=== PATIENT | male | born 1960 | race Caucasian/White ===

== ENCOUNTER 2018-12-06 15:05 | Emergency (ER) | payer OTHER ==
--- NOTE | 2018-12-06 15:40 | ED ---
GI/ HPI - HPI Summary HPI Summary: This patient is a 58 year old male presenting to the ED with a cc of testicular pain for the last two days. He rates the pain 7/10 in severity and states it does not feel similar to his previous torsion. 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 There is no swelling. He denies urinary sx, rectal pain, fever, and new sexual partners. NKDA. The patient was seen at his PCP [facility] for back pain and he was sent here to r/o torsion. - History of Current Complaint Chief Complaint: EDUrogenitalProblems Time Seen by Provider: 12/06/18 15:13 Stated Complaint: RT TESTICLE PAIN Hx Obtained From: Patient Onset/Duration: Started Days Ago - 2, Still Present Timing: Constant Severity: Moderate Current Severity: Moderate Pain Intensity: 7 Location of Pain: Groin Additional Locations for Males: Scrotum, Testicles - Allergy/Home Medications Allergies/Adverse Reactions: Allergies Allergy/AdvReac Type Severity Reaction Status Date / Time No Known Allergies Allergy Verified 12/06/18 15:21 PMH/Surg Hx/FS Hx/Imm Hx Endocrine/Hematology History: Denies: Hx Diabetes, Hx Thyroid Disease Cardiovascular History: Denies: Hx Hypertension, Hx Pacemaker/ICD Respiratory History: Reports: Hx Sleep Apnea - evaluation for 12/2013 Denies: Hx Asthma, Hx Chronic Obstructive Pulmonary Disease (COPD) GI History: Denies: Hx Ulcer Sensory History: Reports: Hx Contacts or Glasses Denies: Hx Hearing Aid Opthamlomology History: Reports: Hx Contacts or Glasses Psychiatric History: Reports: Hx Anxiety, Hx Depression, Hx Inpatient Treatment , Other Psychiatric Issues/Disorders - hx of ETOH Denies: Hx Panic Disorder - Surgical History Surgery Procedure, Year, and Place: nasal surgery as a child, tendon repair ( right) hand, testicular torsion-testicle removed - Immunization History Immunizations Up to Date: Yes Infectious Disease History: No Infectious Disease History: Denies: Hx Hepatitis, Hx Human Immunodeficiency Virus (HIV), History Other Infectious Disease, Traveled Outside the [place] in Last 30 Days - Family History Known Family History: Negative: Respiratory Disease, Seizure Disorder - Social History Alcohol Use: None Substance Use Type: Reports: None Substance Use Comment - Amount & Last Used: Previous ETOH, sober past 3 yrs, goes to AA Smoking Status (MU): Never Smoked Tobacco Type: Cigarettes Amount Used/How Often: 1 ppd Length of Time of Smoking/Using Tobacco: 30 yrs Have You Smoked in the Last Year: Yes Review of Systems Negative: Fever Gastrointestinal: Negative - rectal pain Genitourinary: Negative - swelling , Other - testicular pain Positive: no symptoms reported Musculoskeletal: Other - back pain seen at PCP for this All Other Systems Reviewed And Are Negative: Yes Physical Exam - Summary Physical Exam Summary: Appearance: Well appearing, no pain distress Skin: warm, dry, reflects adequate perfusion Head/face: normal Eyes: EOMI, YNES ENT: mucous membranes moist Neck: supple, non-tender Respiratory: CTA, breath sounds present Cardiovascular: RRR, pulses symmetrical Abdomen: non-tender, soft Bowel Sounds: present : TTP on the epididymis, there is no hernia, there is only a right testicle. Normal lie Musculoskeletal: normal, strength/ROM intact Neuro: normal, sensory motor intact, A&Ox3 Triage Information Reviewed: Yes Vital Signs On Initial Exam: Initial Vitals Temp Pulse Resp BP Pulse Ox 98 F 80 17 139/89 99 12/06/18 15:07 12/06/18 15:07 12/06/18 15:07 12/06/18 15:07 12/06/18 15:07 Vital Signs Reviewed: Yes Diagnostics - Vital Signs Vital Signs Temp Pulse Resp BP Pulse Ox 12/06/18 15:07 98 F 80 17 139/89 99 - Laboratory Lab Statement: Any lab studies that have been ordered have been reviewed, and results considered in the medical decision making process. GIGU Course/Dx - Course Assessment/Plan: US consistent with epididymitis no evidence for torsion. Urine negative. GC/chlamydia testing performed. Start Cipro. Nurse's not reviewed. - Diagnoses Differential Diagnoses - Male: Epididymitis, STD, Ureteral Calculi, Urinary Tract Infection Provider Diagnoses: Acute epididymitis Discharge - Sign-Out/Discharge Documenting (check all that apply): Patient Departure - Discharge Plan Condition: Improved Disposition: HOME Prescriptions: Ciprofloxacin TAB* [Cipro 500 MG TAB*] 500 mg PO BID #20 tab traMADol TAB* [Ultram*] 50 mg PO Q8HR #12 tab MDD 4 Patient Education Materials: Epididymitis (ED) Forms: *Work Release Referrals: Marco Antonio Greenwood MD [Primary Care Provider] - Additional Instructions: Tightfitting underwear. Ice to the area. Ejaculation mental health. Call your doctor in the morning to schedule prompt follow-up. Return if worse, fever , uncontrolled pain, new symptoms or other concerns. - Billing Disposition and Condition Condition: IMPROVED Disposition: Home - Attestation Statements Document Initiated by Jesenia: Yes Documenting Scribe: Chele Sadler Provider For Whom Jesenia is Documenting (Include Credential): Andrey Arnold MD Scribe Attestation: IChele , scribed for Andrey Arnold MD on 12/06/18 at 1647. Scribe Documentation Reviewed: Yes Provider Attestation: The documentation as recorded by the Chele le accurately reflects the service I personally performed and the decisions made by me, Andrey Arnold MD Status of Scrradhikae Document: Viewed
[2018-12-06] MEDS ORDERED: Naproxen TAB* 250 MG PO ONE (15:41)
[2018-12-06 16:00] LABS: Urine Appearance Cloudy; Urine Bilirubin Negative (Negative); Urine Blood Negative (Negative); Urine Color Yellow; Urine Glucose Negative (Negative); Urine Ketones Negative (Negative); Urine Nitrite Negative (Negative); Urine Protein Negative (Negative); Urine Specific Gravity 1.024 (1.010-1.030); Urine Urobilinogen Negative (Negative)
[2018-12-06 16:04] VITALS: BP 127/85
--- OUTSIDE RECORDS SUMMARY | 2018-12-06 16:11 | XMS REPORT | Continuity of Care Document ---
:1960 External Reference #:[id number] Author Name CESAR Lamb Address [address] [facility] [place] [address] Care Team Providers Name Role Phone Marco Antonio Greenwood MD Care Team Information Fruit Sorter Unavailable Marco Antonio Greenwood MD Primary Care Physician Unavailable Payers Type Date Identification Numbers Payment Provider Subscriber Effective: 2010 Policy Number: [id number] [facility] Leilani Schuster PayID: [id number] [address] [address] [place] [address] Advance Directives Description No Information Available Problems Date Description Provider Status Onset: 05/24/2012 Depressive disorder Jacinda Lemons-Mary Lou Active Onset: 05/24/2012 Anxiety state Elaine Lemons Active Onset: 05/24/2012 Alcohol abuse Elaine Lemons Active Onset: 08/30/2012 Nondependent alcohol abuse in Elaine Lemons Active remission Onset: 03/19/2015 Hyperlipidemia Elaine Lemons Active Onset: 09/19/2015 Mixed hyperlipidemia Marco Antonio Greenwood M.D. Active Family History Date Family Member(s) Problem(s) Comments Father due to Cancer () Father Lymphoma Extent Of Involvement Not Specified Number of Children None Number of Siblings Siblings: 1 Social History Type Date Description Comments Sex Unknown Marital Status Patient is Occupation Sales record store Tobacco Use Start: 11/15/82 Current Cigarette Smoker 1 Pack Daily ETOH Use Has consumed alcohol in the past Tobacco Use Start: Unknown Patient is a current a little under 1 ppd, has smoker, smokes every day quit successfully in the past Smoking Status Reviewed: 03/30/17 Patient is a current a little under 1 ppd , has smoker, smokes every day quit successfully in the past Allergies, Adverse Reactions, Alerts Description No Known Drug Allergies Medications Medication Date Status Form Strength Qnty SIG Indications Ordering Provider Cyclobenzaprine 12/06 Active Tablets 5mg 60tabs one to M25.511 two Marilu, tablet [employer] every night at bedtime as needed for upper back, neck, shoulder pain Mirtazapine Active Tablets 30mg take Unknown /0000 1.5-1 tablet by mouth at bedtime Diazepam Active Tablets 2mg 1 po once Unknown /0000 a day as needed for anxiety Viagra 07/01 Hx Tablets 100mg 9tabs take 11/16 F52.21 Marco Antonio A to 1 Dardiogenes, - tablet by M.D. 10/14 mouth minutes prior to sexual activity as directed Nicorette 09/01 Hx Gum 4mg 100units chew one F17.290 piece at [facility], - least 6 Afnp-C 11/17 x/day Temazepam 07/17 Hx Capsules 15mg 30caps 1 by F41.9 Teetee mouth at [facility], - bedtime [employer] 08/06 as needed Aripiprazole 05/26 Hx Tablets 15mg 30tabs 1 tab qd F33.1 Roderick, - Afnp-C 07/17 Abilify 04/28 Hx Tablets 10mg 30tabs 1 po qd F33.40 Roderick, - Afnp-C 05/26 Clonazepam 02/10 Hx Tablets 1mg 60tabs 11/16 - 1 two times [facility], - a day as M.D. 12/06 directed Temazepam 09/19 Hx Capsules 15mg 30caps 1 by F41.9 Marco Antonio A. mouth at [facility], - bedtime M.D. 04/28 Physical Therapy 08/08 Hx treatment 719.41 and Roderick, - evaluatio Afnp-C 09/19 n right shoulder pain Naproxen 08/08 Hx Tablets 500mg 60tabs 1 by 719.41 mouth Roderick, - twice a Afnp-C 09/19 day w food Naproxen 07/17 Hx Tablets 500mg 60tabs 1 po bid 719.41 w/ food Roderick, - Afnp-C 03/19 Physical Therapy 07/17 Hx treatment 719.41 and Roderick, - evaluatio Afnp-C 03/19 n of left shoulder pain Atorvastatin 06/14 Hx Tablets 10mg 90tabs take one 272.4 Stuart Swartz tablet by Tisha, - mouth M.D. 07/01 daily Cialis 04/24 Hx Tablets 5mg 30tabs 1 by mouth Roderick, - every Afnp-C samples given Levitra 03/20 Hx Tablets 10mg samples 1 po one hour Roderick, - prior to Afnp-C 04/24 relations Cymbalta 01/[address] 60mg 30caps 1 by Part mouth qd; Roderick, - may fill Afnp-C 09/18 generic Cymbalta 01/[address] 60mg 30caps 1 po qd Part Roderick, - np-C 01/16 Duloxetine HCL 01/[address] 60mg 30caps take one Part capsule Roderick, - by mouth Afnp-C 07/17 daily Abilify 09/26 Hx Tablets 5mg 30tabs Take One F33.40 Tablet By Roderick, - Mouth Afnp-C 04/28 Every Day Abilify 09/12 Hx Tablets 2mg 30tabs 1 po qd 296.30 Roderick, - Afnp-C 09/26 Cymbalta 08/[address] 60mg 1 po qd Part Roderick, - Afnp-C 01/16 Cymbalta 08/[address] 30mg 7caps 1 po qd; Part samples Roderick, - Afnp-C 08/15 Citalopram 02/24 Hx Tablets 20mg 30tabs 1 po qd Laura Hydrobromide along w/ Roderick, - the 40mg [facility] 08/15 tab Citalopram 02/09 Hx Tablets 40mg 30tabs 1 tab po 311 Laura Hydrobromide qd along Roderick, - w/ 20mg [facility] 08/08 tab Citalopram 12/17 Hx Tablets 60mg 30tabs 1 po qd 311 Laura Hydrobromide Roderick, - chad- 02/09 Klonopin 07/22 Hx Tablets 1mg 20tabs / - 1 F32.9 Laura by mouth Roderick, - twice a [facility] 09/19 day needed Trazodone HCL 06/18 Hx Tablets 50mg 30tabs take one tablet by Roderick, - mouth at [facility] 07/22 bedtime for sleep Celexa 12/17 Hx Tablets 40mg 45tabs 1 and 11/16 311 Laura po qd Roderick, - chad- 12/17 Celexa 09/04 Hx Tablets 20mg 30tabs 1 q am 311 Roderick, - [facility] 12/17 Ambien 08 Hx Tablets 10mg 30tabs 1 po q hs prn Roderick, - [facility] 03/18 Wellbutrin SR 08/14 Hx Tablets 150mg 60tabs 1 tab qd 311 ER 12HR x 3 days Roderick, - , then 1 [facility]- 09/04 tab bid at least 8 hrs apart. Xanax 08/14 Hx Tablets 0.25mg 20tabs 1 po qd 311 Laura prn Roderick, - [facility] 07/22 Rexulti 0000 Hx Tablets 1mg Unknown /0000 - 08/06 Lexapro 0000 Hx Tablets 20mg 1 by Unknown /0000 mouth - every day 11/17 Pristiq 0000 Hx Tablets 100mg take 1 Unknown /0000 ER 24HR tablet by - mouth at 03/29 bedtime Nicotine Step 1 00 Hx Patches 21mg/24HR F17.290 Unknown /0000 24HR - 03/[address] 30mg 1 by Unknown /0000 Part mouth - every day 07/01 Abilify Hx Tablets 2mg 1 qd Unknown /0000 along - with 5mg 12/06 for total /2018 of 7mg. Trintellix Hx Tablets 10mg take 1 Unknown /0000 tablet by - mouth 10/14 daily depressio n Abilify Hx Tablets 5mg take one Unknown /0000 tablet - along 07/14 with 2mg 2018 for 7mg total Methylphenidate Hx Tablets 5mg 1 by Unknown HCL /0000 mouth - every day 10/14 Venlafaxine HCL Hx Caps ER 37.5mg 1 by Unknown ER /0000 24HR mouth - every day 12/06 Immunizations CPT Code Status Date Vaccine Lot # [id number] Given 10/14/2017 Influenza vac quadrivalent preservative free 3yrs [id number] [place] [id number] Given 03/30/2017 Tdap Tetanus, W Pertussis [id number] Given 09/19/2015 Influenza Vac, Quadrivalent, Slit Virus, Im [id number] Given 09/18/2014 DO Not Use Split Influenza Virus Vaccine [id number] Given 08/30/2012 DO Not Use Split Influenza Virus Vaccine [id number] Vital Signs Date Vital Result Comment 12/06/2018 1:56pm BP Systolic 110 mmHg BP Diastolic 60 mmHg Heart Rate 80 /min Body Temperature 97.8 F Respiratory Rate 16 /min Height 67.5 inches 5'7.50" Weight 141.00 lb BMI (Body Mass Index) 21.8 kg/m2 07/14/2018 6:11pm BP Systolic 100 mmHg BP Diastolic 60 mmHg Heart Rate 76 /min Body Temperature 97.7 F Respiratory Rate 16 /min Height 67.5 inches 5'7.50" Weight 148.00 lb BMI (Body Mass Index) 22.8 kg/m2 10/14/2017 1:00pm BP Systolic 90 mmHg BP Diastolic 50 mmHg Heart Rate 80 /min Body Temperature 97.9 F Respiratory Rate 16 /min Height 67.5 inches 5'7.50" Weight 142.00 lb BMI (Body Mass Index) 21.9 kg/m2 07/01/2017 5:58pm BP Systolic 110 mmHg BP Diastolic 60 mmHg Heart Rate 92 /min Body Temperature 98.6 F Respiratory Rate 16 /min Height 67.5 inches 5'7.50" Weight 137.25 lb BMI (Body Mass Index) 21.2 kg/m2 03/30/2017 1:08pm BP Systolic 80 mmHg BP Diastolic 56 mmHg Heart Rate 104 /min Body Temperature 98.1 F Respiratory Rate 14 /min Height 67.5 inches 5'7.50" Weight 144.25 lb BMI (Body Mass Index) 22.3 kg/m2 11/17/2016 10:49am BP Systolic 98 mmHg BP Diastolic 50 mmHg Heart Rate 90 /min Body Temperature 98.4 F Respiratory Rate 16 /min Height 67.5 inches 5'7.50" Weight 143.38 lb BMI (Body Mass Index) 22.1 kg/m2 09/01/2016 12:59pm BP Systolic 120 mmHg BP Diastolic 70 mmHg Heart Rate 16 /min Body Temperature 98.6 F Respiratory Rate 18 /min Height 67.5 inches 5'7.50" Weight 142.00 lb BMI (Body Mass Index) 21.9 kg/m2 08/18/2016 2:50pm BP Systolic 82 mmHg BP Diastolic 56 mmHg Heart Rate 60 /min Body Temperature 97.6 F Respiratory Rate 16 /min Height 67.5 inches 5'7.50" Weight 143.50 lb BMI (Body Mass Index) 22.1 kg/m2 08/06/2016 11:16am BP Systolic 110 mmHg BP Diastolic 64 mmHg Heart Rate 84 /min Body Temperature 97.8 F Respiratory Rate 16 /min Height 67.5 inches 5'7.50" Weight 143.50 lb BMI (Body Mass Index) 22.1 kg/m2 05/26/2016 1:13pm BP Systolic 110 mmHg BP Diastolic 60 mmHg Heart Rate 76 /min Respiratory Rate 16 /min Height 67.5 inches 5'7.50" Weight 145.00 lb BMI (Body Mass Index) 22.4 kg/m2 04/28/2016 1:00pm BP Systolic 100 mmHg BP Diastolic 60 mmHg Heart Rate 88 /min Body Temperature 97.5 F Respiratory Rate 16 /min Height 67.5 inches 5'7.50" Weight 144.38 lb BMI (Body Mass Index) 22.3 kg/m2 10/01/2015 4:45pm BP Systolic 108 mmHg BP Diastolic 62 mmHg Heart Rate 92 /min Body Temperature 98.7 F Respiratory Rate 16 /min Height 67.5 inches 5'7.50" Weight 144.00 lb BMI (Body Mass Index) 22.2 kg/m2 09/19/2015 1:15pm BP Systolic 100 mmHg BP Diastolic 60 mmHg Heart Rate 96 /min Body Temperature 97.9 F Respiratory Rate 16 /min Height 67.5 inches 5'7.50" Weight 144.00 lb BMI (Body Mass Index) 22.2 kg/m2 08/08/2015 1:43pm BP Systolic 110 mmHg BP Diastolic 70 mmHg Heart Rate 90 /min Body Temperature 97.6 F Respiratory Rate 16 /min Height 67.5 inches 5'7.50" Weight 147.00 lb BMI (Body Mass Index) 22.7 kg/m2 03/19/2015 2:02pm BP Systolic 98 mmHg BP Diastolic 62 mmHg Heart Rate 68 /min Body Temperature 97.9 F Respiratory Rate 16 /min Height 67.5 inches 5'7.50" Weight 146.25 lb BMI (Body Mass Index) 22.6 kg/m2 09/18/2014 2:05pm BP Systolic 100 mmHg BP Diastolic 52 mmHg Heart Rate 84 /min Body Temperature 97.6 F Respiratory Rate 16 /min Height 67.5 inches 5'7.50" Weight 146.00 lb BMI (Body Mass Index) 22.5 kg/m2 07/17/2014 6:01pm BP Systolic 100 mmHg BP Diastolic 60 mmHg Heart Rate 84 /min Body Temperature 98.6 F Respiratory Rate 16 /min Height 67.5 inches 5'7.50" Weight 145.50 lb BMI (Body Mass Index) 22.4 kg/m2 06/14/2014 10:02am BP Systolic 92 mmHg BP Diastolic 60 mmHg Heart Rate 84 /min Body Temperature 96.6 F Height 67.5 inches 5'7.50" Weight 152.00 lb BMI (Body Mass Index) 23.5 kg/m2 05/10/2014 1:57pm BP Systolic 110 mmHg BP Diastolic 50 mmHg Heart Rate 80 /min Body Temperature 97.4 F Respiratory Rate 16 /min Height 67.5 inches 5'7.50" Weight 148.00 lb BMI (Body Mass Index) 22.8 kg/m2 04/24/2014 3:04pm BP Systolic 90 mmHg BP Diastolic 60 mmHg Heart Rate 80 /min Body Temperature 98.2 F Respiratory Rate 16 /min Height 67.5 inches 5'7.50" Weight 145.12 lb BMI (Body Mass Index) 22.4 kg/m2 01/16/2014 2:02pm BP Systolic 98 mmHg BP Diastolic 50 mmHg Heart Rate 84 /min Body Temperature 98.5 F Respiratory Rate 16 /min Height 67.5 inches 5'7.50" Weight 144.00 lb BMI (Body Mass Index) 22.2 kg/m2 10/10/2013 2:07pm BP Systolic 116 mmHg BP Diastolic 60 mmHg Heart Rate 90 /min Body Temperature 98.1 F Respiratory Rate 16 /min Height 67.5 inches 5'7.50" Weight 138.38 lb BMI (Body Mass Index) 21.4 kg/m2 09/26/2013 2:43pm BP Systolic 110 mmHg BP Diastolic 60 mmHg Heart Rate 120 /min Body Temperature 96.7 F Respiratory Rate 18 /min Height 67.5 inches 5'7.50" Weight 135.12 lb BMI (Body Mass Index) 20.8 kg/m2 09/12/2013 1:16pm BP Systolic 100 mmHg BP Diastolic 70 mmHg Heart Rate 96 /min Body Temperature 97.1 F Height 67.5 inches 5'7.50" Weight 135.12 lb BMI (Body Mass Index) 20.8 kg/m2 08/29/2013 12:58pm BP Systolic 100 mmHg BP Diastolic 60 mmHg Heart Rate 96 /min Body Temperature 98.0 F Respiratory Rate 16 /min Height 67.5 inches 5'7.50" Weight 135.12 lb BMI (Body Mass Index) 20.8 kg/m2 08/15/2013 3:36pm BP Systolic 100 mmHg BP Diastolic 62 mmHg Heart Rate 88 /min Body Temperature 98.6 F Respiratory Rate 16 /min Height 67.5 inches 5'7.50" Weight 138.50 lb BMI (Body Mass Index) 21.4 kg/m2 08/08/2013 6:13pm BP Systolic 102 mmHg BP Diastolic 58 mmHg Heart Rate 96 /min Body Temperature 98.8 F Height 67.5 inches 5'7.50" Weight 138.50 lb BMI (Body Mass Index) 21.4 kg/m2 04/04/2013 12:10pm BP Systolic 90 mmHg BP Diastolic 54 mmHg Heart Rate 78 /min Body Temperature 98.7 F Respiratory Rate 16 /min Height 67.5 inches 5'7.50" Weight 134.00 lb BMI (Body Mass Index) 20.7 kg/m2 09/22/2012 3:41pm BP Systolic 100 mmHg BP Diastolic 60 mmHg Heart Rate 76 /min Body Temperature 97.1 F Respiratory Rate 12 /min Height 67.5 inches 5'7.50" Weight 136.00 lb BMI (Body Mass Index) 21.0 kg/m2 08/30/2012 12:07pm BP Systolic 88 mmHg BP Diastolic 52 mmHg Heart Rate 80 /min Body Temperature 95.5 F Height 67.5 inches 5'7.50" Weight 137.00 lb BMI (Body Mass Index) 21.1 kg/m2 05/24/2012 3:55pm BP Systolic 94 mmHg BP Diastolic 58 mmHg Heart Rate 72 /min Height 67.5 inches 5'7.50" Weight 136.00 lb BMI (Body Mass Index) 21.0 kg/m2 02/10/2012 11:38am BP Systolic 92 mmHg BP Diastolic 56 mmHg Heart Rate 64 /min Height 67.5 inches 5'7.50" Weight 133.00 lb BMI (Body Mass Index) 20.5 kg/m2 01/06/2012 11:34am BP Systolic 102 mmHg BP Diastolic 48 mmHg Heart Rate 88 /min Height 67.5 inches 5'7.50" Weight 140.00 lb BMI (Body Mass Index) 21.6 kg/m2 12/17/2011 11:15am BP Systolic 84 mmHg BP Diastolic 52 mmHg Heart Rate 72 /min Height 67.5 inches 5'7.50" Weight 140.00 lb BMI (Body Mass Index) 21.6 kg/m2 12/02/2011 11:36am BP Systolic 106 mmHg BP Diastolic 62 mmHg Heart Rate 68 /min Respiratory Rate 13 /min Height 67.5 inches 5'7.50" Weight 140.00 lb BMI (Body Mass Index) 21.6 kg/m2 08/26/2011 11:28am BP Systolic 102 mmHg BP Diastolic 58 mmHg Heart Rate 76 /min Body Temperature 97.2 F Height 67.5 inches 5'7.50" Weight 140.00 lb BMI (Body Mass Index) 21.6 kg/m2 07/22/2011 11:37am BP Systolic 98 mmHg BP Diastolic 60 mmHg Heart Rate 72 /min Body Temperature 96.6 F Height 67.5 inches 5'7.50" Weight 137.00 lb BMI (Body Mass Index) 21.1 kg/m2 06/18/2011 11:32am BP Systolic 82 mmHg BP Diastolic 56 mmHg Heart Rate 80 /min Body Temperature 97.4 F Height 67.5 inches 5'7.50" Weight 135.00 lb BMI (Body Mass Index) 20.8 kg/m2 03/18/2011 12:00pm BP Systolic 90 mmHg BP Diastolic 54 mmHg Heart Rate 78 /min Body Temperature 97.9 F Height 67.5 inches 5'7.50" Weight 137.00 lb BMI (Body Mass Index) 21.1 kg/m2 01/14/2011 11:33am BP Systolic 84 mmHg BP Diastolic 56 mmHg Heart Rate 68 /min Height 67.5 inches 5'7.50" Weight 134.00 lb BMI (Body Mass Index) 20.7 kg/m2 12/17/2010 11:28am BP Systolic 102 mmHg BP Diastolic 58 mmHg Heart Rate 80 /min Body Temperature 97.4 F Respiratory Rate 20 /min Height 67.5 inches 5'7.50" Weight 141.00 lb BMI (Body Mass Index) 21.8 kg/m2 10/08/2010 3:28pm BP Systolic 110 mmHg BP Diastolic 70 mmHg Heart Rate 80 /min Body Temperature 98.0 F Height 67.5 inches 5'7.50" Weight 140.00 lb BMI (Body Mass Index) 21.6 kg/m2 09/04/2010 1:02pm BP Systolic 110 mmHg BP Diastolic 70 mmHg Heart Rate 76 /min Height 67.5 inches 5'7.50" Weight 136.00 lb BMI (Body Mass Index) 21.0 kg/m2 08/14/2010 1:05pm BP Systolic 100 mmHg BP Diastolic 70 mmHg Heart Rate 72 /min Body Temperature 97.6 F Respiratory Rate 15 /min Height 67.5 inches 5'7.50" Weight 135.00 lb BMI (Body Mass Index) 20.8 kg/m2 Results Test Date Facility Test Result H/L Range Note CBC Electronic [facility] 07/07/2018 [facility] ([facility]) WBC 9.8 x10^3/UL 4.0- 10.0 RBC 4.46 x10^6/UL 3.93-6.00 HGB 12.9 g/dL 12.0-17.0 HCT 38 % 35-50 MCV 85.4 fL 80.0-95.0 MCH 28.9 pg 25.6-32.2 MCHC 33.9 g/dL 32.2-36.0 RDW-CV 12.5 % 11.6-14.4 PLT 339 x10^3/UL 163-400 MPV 8.7 fL Low 9.4-12.4 1 Laura# 5.11 x10^3/UL 1.56-6.13 Lymph# 2.95 x10^3/UL 1.18-3.74 [place]# 1.13 x10^3/UL High 0.24-0.82 Eos # 0.5 x10^3/UL 0.0-0.5 Baso # 0.04 x10^3/UL 0.01-0.08 Laura% 52.2 % 34.0-70.0 Lymph % 30.1 % 20.0-52.0 [place]% 11.5 % 5.0-12.0 Eos% 5.5 % 0.7-7.0 Baso% 0.4 % 0.1-1.2 CBC Auto Diff 03/28/2018 [facility] [facility] White Blood Count 9.1 10^3/uL N 3.5-10.8 Red Blood Count 4.32 10^6/uL N 4.0-5.4 Hemoglobin 13.0 g/dL Low 14.0-18.0 Hematocrit 38 % Low 42-52 Mean Corpuscular Volume 88 fL N 80-94 Mean Corpuscular Hemoglobin 30 pg N 27-31 Mean Corpuscular HGB Conc 34 g/dL N 31-36 Red Cell Distribution Width 14 % N 10.5-15 Platelet Count 325 10^3/uL N 150-450 Mean Platelet Volume 6.7 um3 Low 7.4-10.4 Abs Neutrophils 4.2 10^3/uL N 1.5-7.7 Abs Lymphocytes 3.5 10^3/uL N 1.0-4.8 Abs Monocytes 1.1 10^3/uL High 0-0.8 Abs Eosinophils 0.2 10^3/uL N 0-0.6 Abs Basophils 0.1 10^3/uL N 0-0.2 Abs Nucleated RBC 0 10^3/uL Granulocyte % 45.9 % N 38-83 Lymphocyte % 38.7 % N 25-47 Monocyte % 11.9 % High 0-7 Eosinophil % 2.8 % N 0-6 Basophil % 0.7 % N 0-2 Nucleated Red Blood Cells % 0.1 Comp Metabolic Panel 11/29/2017 [facility] Sodium 136 mmol/L N 133-145 Potassium 3.9 mmol/L N 3.5-5.0 Chloride 102 mmol/L N 101-111 Co2 Carbon Dioxide 31 mmol/L N 22-32 Anion Gap 3 mmol/L N 2-11 Glucose 84 mg/dL N 70-100 Blood Urea Nitrogen 13 mg/dL N 6-24 Creatinine 0.97 mg/dL N 0.67-1.17 BUN/Creatinine Ratio 13.4 N 8-20 Calcium 9.5 mg/dL N 8.6-10.3 Total Protein 6.9 g/dL N 6.4-8.9 Albumin 4.1 g/dL N 3.2-5.2 Globulin 2.8 g/dL N 2-4 Albumin/Globulin Ratio 1.5 N 1-3 Total Bilirubin 0.40 mg/dL N 0.2-1.0 Alkaline Phosphatase 77 U/L N 34-104 Alt 15 U/L N 7-52 Ast 17 U/L N 13-39 Egfr Non- 80.4 >60 Egfr 103.3 >60 2 Laboratory test finding 11/29/2017 [facility] [place] C Reactive Protein 1.04 mg/L N < 5.00 3 LDH 155 U/L N 140-271 CBC Auto Diff 11/29/2017 [facility] White Blood Count 15.8 10^3/uL High 3.5- 10.8 Red Blood Count 4.55 10^6/uL N 4.0-5.4 Hemoglobin 13.5 g/dL Low 14.0-18.0 Hematocrit 40 % Low 42-52 Mean Corpuscular Volume 87 fL N 80-94 Mean Corpuscular Hemoglobin 30 pg N 27-31 Mean Corpuscular HGB Conc 34 g/dL N 31-36 Red Cell Distribution Width 14 % N 10.5-15 Platelet Count 383 10^3/uL N 150-450 Mean Platelet Volume 7 um3 Low 7.4-10.4 Abs Neutrophils 11.5 10^3/uL High 1.5-7.7 Abs Lymphocytes 2.7 10^3/uL N 1.0-4.8 Abs Monocytes 1.3 10^3/uL High 0-0.8 Abs Eosinophils 0.2 10^3/uL N 0-0.6 Abs Basophils 0.1 10^3/uL N 0-0.2 Abs Nucleated RBC 0 10^3/uL Granulocyte % 72.8 % N 38-83 Lymphocyte % 17.1 % Low 25-47 Monocyte % 8.1 % N 1-9 Eosinophil % 1.2 % N 0-6 Basophil % 0.8 % N 0-2 Nucleated Red Blood Cells % 0 Laboratory test finding 11/29/2017 [facility] [place] Erythrocyte Sed Rate 13 mm/Hr N 0- 20 BCR/Abl Trans 9:22 Fish 11/29/2017 [facility] [place] BCR/abl (Fish) Result Normal Summary BCR/abl (Fish) Result Table See Comment 4 BCR/abl (Fish) Specimen Blood BCR/abl (Fish) Referral Reason high WBC BCR/abl (Fish) Method See Comment 5 BCR/abl Results See Comment 6 BCR/abl (Fish) Interpretation See Comment 7 BCR/abl (Fish) Disclaimer See Comment 8 BCR/abl (Fish) Released By See Comment 9 Laboratory test finding 11/29/2017 [facility] [place] Rheumatoid Factor <15 IU/mL <15 10 Nuclear AB (Hallie) By Ifa Igg <1:80 (Negative) 11 Myeloprolif Neoplasm With 11/29/2017 [facility] [place] MPNR Result see interpretati <SEE 12 RFX NOTE> MPNR Final Diagnosis See Comment 13 Complete Blood Count 10/14/2017 Lui [facility] ([facility]) WBC 10.9 x10^3/UL High 3.6-9.6 14 RBC 4.52 x10^6/UL 3.90-5.70 HGB 13.8 g/dL 12.1-17.2 HCT 41 % 36-50 MCV 90.0 fL 82.2-97.4 MCH 30.5 pg 27.6-33.3 MCHC 33.9 g/dL 33.0-35.5 RDW 13.2 % 11.6-13.7 PLT 409 x10^3/UL High 150-400 15 MPV 7.0 fL Low 7.4-10.4 Gran # 7.7 x10^3/UL High 1.5-7.2 Lymph# 2.6 x10^3/UL 0.7-4.9 [place]# 0.6 x10^3/UL 0.1-0.9 Gran % 69.8 % 42.2-75.2 Lymph % 24.4 % 20.5-51.1 [place]% 5.8 % 1.7-9.3 Laboratory test finding 10/14/2017 Lui Morris ([facility]) PSA 0.7 ng/mL 0.0-4.0 Vitamin D25 55 30-100 TSH 0.51 mIU/L 0.50-6.00 Comprehensive Metabolic 10/14/2017 Lui Morris ([facility]) Sodium 142 mEq/L 134-149 Prof Potassium 4.3 mEq/L 3.6-5.5 Chloride 105 mEq/L 94-112 Carbon Dioxide 27 mEq/L 21-32 Glucose 101 mg/dL 70-105 BUN 12 mg/dL 6-26 Creatinine 0.9 mg/dL 0.6-1.4 BUN/Creat Ratio 13.3 CALC 8.0-36.0 Calcium 9.3 mg/dL 8.6-10.2 Total Protein 6.8 g/dL 6.4-8.3 Albumin 4.4 g/dL 3.8-5.5 Globulin 2.4 g/dL 2.0-4.8 A/G Ratio 1.8 CALC 0.6-2.3 Alk. Phosphatase 82 U/L 22-95 Alt (SGPT) 18 U/L 7-35 Ast (Sgot) 17 U/L 5-34 Total Bilirubin 0.4 mg/dL 0.2-1.3 GFR Non- >60 ml/min/1.73m^ >=60 GFR >60 ml/min/1.73m^ >=60 Lipid Profile 10/14/2017 Lui Morris ([facility]) Cholesterol 226 mg/dL High 120-200 Triglycerides 160 mg/dL 30-200 HDL Cholesterol 51 mg/dL 30-70 LDL (Calculated) 143 CALC High 0-129 VLDL Cholesterol 32 mg/dL 0-50 HDL Risk Factor 4.4 CALC 0.0-4.4 Lipid Profile 04/08/2017 Lui Morris (a) Cholesterol 171 mg/dL 120- 200 Triglycerides 150 mg/dL 30-200 HDL Cholesterol 57 mg/dL 30-70 LDL (Calculated) 84 CALC 0-129 VLDL Cholesterol 30 mg/dL 0-50 HDL Risk Factor 3.0 CALC 0.0-4.4 Hepatitis Panel, 03/30/2017 [facility] Hep A Ab, Negative Negative [address] [facility] [place] [address] (607)- - HBsAg Screen Negative Negative Hep B Core Ab, IgM Negative Negative Hep C Virus Ab 0.4 s/coratio 0.0-0.9 17 Laboratory test 03/30/2017 [facility] RPR Non Reactive Non Reactive finding [address] [place] [address] (607)- - HIV 1/O/2 Ag/AB 03/30/2017 [facility] HIV Screen 4th Non Reactive Non Reactive Prelim W/Wales [address] [facility] [place] [place] [address] wRfx (607)- - Chlamydia/GC 03/30/2017 [facility] Chlamydia Negative Negative Amplification [address] [facility] trachomatis, [place] [address] Christie (607)- - Neisseria gonorrhoeae, Christie Negative Negative Laboratory test 03/30/2017 [facility] HSV Type <0.91 0.00-0.90 [address] [place] [address] 2-Specific Ab, [place] [address] IgG (607)- - Ua - Micro ([facility]) 11/17/2016 [facility] Appearance clear (607)- - Color yellow Glucose, Urine ([facility]/CMC/CTX) icto neg Bilirubin icto neg # Ketones trace # SP Grav 1.025 Blood neg PH 7.0 Protein ssa neg # Urobil 0.2 Nitrite neg Leukocytes ([facility]/CMC/Centrex) small # WBC ([facility],Centrex) 20-30 # RBC 2-4 # Mucus ([facility]/CBC/Centrex) small amount /Lpf # Bacteria 1+ /Hpf # Amorphous ([facility]/CMC/Centrex) small amount /Lpf # Laboratory test finding 11/17/2016 [facility] Request Problem TNP 19 [address] [place] [address] (607)- - Chlamydia/GC 11/17/2016 [facility] Chlamydia TNP [address] [facility] trachomatis, [place] [address] (607)- - Neisseria gonorrhoeae, Christie TNP 21 HIV 1/O/2 11/17/2016 [facility] HIV Screen 4th Non Reactive Non Reactive Ag/AB Prelim [address] [facility] Generation wRfx W/[place] [address] Sup (607)- - Urine Culture 11/17/2016 [facility] Urine Culture, Final report Routine [address] [facility] [place] [address] (607)- - Result 1 No growth Laboratory test 11/17/2016 [facility] RPR Non Reactive Non Reactive finding [address] [place] [address] (603)- - Hepatitis Panel, 11/17/2016 [facility] Hep A Ab, Negative Negative Acute [address] [facility] [place] [address] (607)- - HBsAg Screen Negative Negative Hep B Core Ab, IgM Negative Negative Hep C Virus Ab 0.5 s/coratio 0.0-0.9 22 HIV 1/O/2 Ag/AB 09/01/2016 [facility] HIV Screen 4th Non Non 23 Prelim W/[place] [address] [facility] Generation [place] [address] wRfx (607)- - Laboratory test 08/18/2016 [facility] HSV Type <0.91 index 0.00-0.[address] [place] [address] 2-Specific Ab, [place] [address] IgG (607)- - HSV, IgM I/II 08/06/2016 [facility] HSV, IgM I/II 1.20 Ratio High 0.00-0.[address] [facility] [place] [address] (602)- - Chlamydia/GC 08/06/2016 [facility] Chlamydia Negative Negative Amplification [address] [facility] trachomatis, [place] [address] Christie (607)- - Neisseria gonorrhoeae, Christie Negative Negative Laboratory test 08/06/2016 [facility] RPR Non Reactive Non Reactive finding [address] [place] [address] (60)- - PDF [id number] SEE IMAGE Laboratory test 05/26/2016 [facility] RPR Non Reactive Non Reactive [address] [place] [phone] (608)- - Testosterone, 05/26/2016 [facility] Testostero 807 ng/dL [phone] Free And Total [address] [facility] ne, [place] [address] (607)- - Comment: See Comment: 27 Free Testosterone(Direct) 11.6 pg/mL 7.2-24.0 HIV 1/O/2 Ag/AB 05/26/2016 [facility] HIV Screen 4th Non Reactive Non Reactive Prelim W/[place] [address] [facility] [place] [address] wRfx (607)- - Chlamydia/GC 05/26/2016 [facility] Chlamydia Negative Negative Amplification [address] [facility] trachomatis, [place] [address] Christie (607)- - Neisseria gonorrhoeae, Christie Negative Negative Please note: See Comment: 28 Laboratory test 09/19/2015 Poe Alexandra ([facility]) PSA 0.6 ng/mL 0.0-4.0 finding Laboratory test 09/19/2015 [facility] Hepatitis C Nonreactive N Nonreactive finding Antibody Lipid Profile 09/19/2015 Poe Alexandra ([facility]) Cholesterol 142 mg/dL 120- 200 Triglycerides 216 mg/dL High 30-200 HDL Cholesterol 45 mg/dL 30-70 LDL (Calculated) 54 CALC 0-129 VLDL Cholesterol 43 mg/dL 0-50 HDL Risk Factor 3.2 CALC 0.0-4.4 Comprehensive Metabolic 09/19/2015 Poe Alexandra ([facility]) Sodium 140 mEq/L 134-149 Prof Potassium 4.1 mEq/L 3.6-5.5 Chloride 99 mEq/L 94-112 Carbon Dioxide 31 mEq/L 21-32 Glucose 90 mg/dL 70-105 BUN 11 mg/dL 6-26 Creatinine 0.9 mg/dL 0.6-1.4 BUN/Creat Ratio 12.2 CALC 8.0-36.0 Calcium 9.7 mg/dL 8.6-10.2 Total Protein 7.3 g/dL 6.4-8.3 Albumin 4.4 g/dL 3.8-5.5 Globulin 2.9 g/dL 2.0-4.8 A/G Ratio 1.5 CALC 0.6-2.3 Alk. Phosphatase 79 U/L 22-95 Alt (SGPT) 19 U/L 7-35 Ast (Sgot) 30 U/L 5-34 Total Bilirubin 0.2 mg/dL 0.2-1.3 GFR Non- >60 ml/min/1.73m^ >=60 GFR >60 ml/min/1.73m^ >=60 Hepatic 09/18/2014 Poe Alexandra (a) Total Protein 6.7 g/dL 6.4-8.3 Albumin 4.5 g/dL 3.8-5.5 Globulin 2.2 g/dL 2.0-4.8 A/G Ratio 2.0 CALC 0.6-2.3 Alk. Phosphatase 68 U/L 22-95 Alt (SGPT) 21 U/L 7-35 Ast (Sgot) 21 U/L 5-34 Total Bilirubin 0.3 mg/dL 0.2-1.3 Direct Bilirubn 0.2 mg/dL 0.0-0.6 Indirect Bilirubin 0.10 mg/dL 0.10-1.00 Laboratory test 07/17/2014 Lui Alexandra (a) CK 137 U/L 38-174 finding Laboratory test 05/10/2014 Lui Alexandra (a) PSA 0.6 ng/mL 0.0-4.0 finding Lipid Profile 05/10/2014 Lui Alexandra (a) Cholesterol 218 mg/dL High 120-200 Triglycerides 144 mg/dL 30-200 HDL Cholesterol 41 mg/dL 30-70 LDL (Calculated) 148 CALC High 0-129 VLDL Cholesterol 29 mg/dL 0-50 HDL Risk Factor 5.3 CALC High 0.0-4.4 Comprehensive Metabolic 05/10/2014 Lui Alexandra (a) Sodium 135 mEq/L 134-149 Prof Potassium 4.1 mEq/L 3.6-5.5 Chloride 100 mEq/L 94-112 Carbon Dioxide 24 mEq/L 21-32 Glucose 80 mg/dL 70-105 BUN 10 mg/dL 6-26 Creatinine 1.0 mg/dL 0.6-1.4 BUN/Creat Ratio 10.0 CALC 8.0-36.0 Calcium 9.8 mg/dL 8.6-10.2 Total Protein 6.8 g/dL 6.3-8.1 Albumin 4.4 g/dL 3.8-5.5 Globulin 2.4 g/dL 2.0-4.8 A/G Ratio 1.8 CALC 0.6-2.3 Alk. Phosphatase 74 U/L 22-95 Alt (SGPT) 25 U/L 7-35 Ast (Sgot) 15 U/L 5-34 Total Bilirubin 0.3 mg/dL 0.2-1.3 Hep C Abs 10/10/2013 [facility] Hep C NON-REACTIVE Non-Reactive 29 28 [facility] [place] [address] [phone] Hep C S/Co Ratio 0.1 0.0-0.7 Laboratory test 10/10/2013 [facility] RPR NON-REACTIVE Non-Reactive finding 28 [place] [address] [phone] Anti Viral AB 10/10/2013 [facility] HIV 1/O/2 <1.00 <1.00 30 Screen 28 [facility] [place] [address] Value [phone] HIV 1/O/2 Abs, Qual Non Reactive Non Reactive HSV Igm I/II 10/10/2013 [facility] HSV, IgM I/II 0.94 High 0.00-0.90 [address] [place] [address] Combination Ratio [place], [place] [id number] [phone] Chlamydia/GC 10/10/2013 [facility] Chlamydia/GC, SEE Aptima Urine [address] [place] [address] Christie BELOW [place], [place] [id number] [phone] Source- Urine * Chlamydia Trachomatis,Christie Negative Negative 32 Neisseria Gonorrhoeae,Christie Negative Negative 33 Please Note: SEE BELOW 34 Lyme Western Blot Ser 08/08/2013 [facility] IgG P93 Ab. Absent 28 [place] [address] [phone] IgG P66 Ab. Absent IgG P58 Ab. Absent IgG P45 Ab. Absent IgG P41 Ab. Absent IgG P39 Ab. Absent IgG P30 Ab. Absent IgG P28 Ab. Absent IgG P23 Ab. Absent IgG P18 Ab. Absent Lyme IgG WB Interp. Negative 35 IgM P41 Ab. Absent IgM P39 Ab. Absent IgM P23 Ab. Absent Lyme IgM WB Interp. Negative 36 Lyme Igg/M 08/08/2013 [facility] Lyme IgG/IgM 1.06 index High 0.00-0.90 37 W/RFX [place] [address] [place] [address] [place] [address] [phone] Lyme Ab Interp.,Eia Equivocal Lyme Disease Ab, Quant, IgM <0.91 index 0.00-0.90 38 Comprehensive Metabolic 08/08/2013 Poe Alexandra ([facility]) Albumin 5.1 g/dL 3.8-5.5 Prof Alk. Phos. 81 U/L 22-95 Alt (SGPT) 25 U/L 10-40 Ast (Sgot) 22 U/L 5-34 BUN 16 mg/dL 6-26 Calcium 10.2 mg/dL 8.6-10.2 Chloride 110 mEq/L 94-112 Creatinine 1.0 mg/dL 0.6-1.4 Carbon Dioxide 27 mEq/L 21-32 Glucose 85 mg/dL 70-105 Sodium 139 mEq/L 134-149 Total Bilirubin 0.3 mg/dL 0.2-1.3 Total Protein 7.5 g/dL 6.3-8.1 Potassium 4.6 mEq/L 3.6-5.5 Globulin 2.4 g/dL 2.0-4.8 A/G Ratio 2.1 Calc 0.6-2.3 BUN/Creat Ratio 16.5 Calc 8.0-36.0 Laboratory test 08/08/2013 Poe Alexandra ([facility]) TSH 0.32 mIU/L Low 0.50- 6.00 39 finding Free T4 1.02 ng/dL 0.75-1.54 Surgical Pathology 12/12/2012 [facility] S RUN DATE: 12/14/ <SEE NOTE> Comprehensive 09/26/2012 Poe Alexandra ([facility]) Albumin 4.7 g/dL 3.8-5.5 Metabolic Prof Alk. Phos. 68 U/L -95 Alt (SGPT) 21 U/L 10-40 Ast (Sgot) 19 U/L 5-34 BUN 11 mg/dL 6-26 Calcium 9.0 mg/dL 8.6-10.2 Chloride 103 mEq/L 94-112 Creatinine 1.0 mg/dL 0.6-1.4 Carbon Dioxide 27 mEq/L 21-32 Glucose 89 mg/dL 70-105 Sodium 137 mEq/L 134-149 Total Bilirubin 0.4 mg/dL 0.2-1.3 Total Protein 7.0 g/dL 6.3-8.1 Potassium 4.3 mEq/L 3.6-5.5 Globulin 2.3 g/dL 2.0-4.8 A/G Ratio 2.1 Calc 0.6-2.2 BUN/Creat Ratio 10.9 Calc 8.0-36.0 Laboratory test finding 09/26/2012 Lui Alexandra ([facility]) PSA 0.50 ng/mL 0.00-4.00 TSH 0.56 mIU/L 0.50-6.00 Ua - Non Micro (a) 09/26/2012 [facility] Appearance CLEAR (607)- - Color YELLOW Glucose, Urine (Fma/[facility]/CTX) NEG Bilirubin NEG Ketones NEG SP Grav 1.020 Blood NEG PH 7.5 Protein NEG Urobil 0.2 Nitrite NEG Leukocytes ([facility]) NEG CBC Electronic (a) 09/26/2012 [facility] WBC 9.9 High 3.6-9.6 (607)- - RBC 4.74 3.90-5.70 Hemoglobin (Fma/[facility]/CTX) 13.8 g/dL 12.1 - 17.2 Hematocrit (Fma/[facility]/CTX) 42.7 % 36.1 - 50.3 Platelets 308 10^3/ul 150-400 Lymph% 30.6 20.5-51.1 Mixed% 5.1 Neutrophils % 64.3 Mean Corpuscular Vol 90 82.2-97.4 Mean Corpuscular Hemoglobin 29.1 27.6-33.3 Mean Corpuscular Hemo Concen 32.3 32.0-36.0 RDW 13.8 High 11.6-13.7 Mean Platelet Volume 6.6 6.5-11.0 Lipid Profile 09/26/2012 Lui Morris ([facility]) Cholesterol 220 mg/dL High 120-200 HDL 43 mg/dL 30-70 Triglycerides 91 mg/dL 30-200 HDL Risk Factor 5.1 CALC High 0.0-4.4 LDL (Calculated) 159 CALC High 0-129 VLDL (Calculated) 18 mg/dL 0-50 Comprehensive Metabolic 09/04/2010 Lui Alexandra ([facility]) Albumin 4.5 g/dL 3.8-5.5 Prof Alk. Phos. 56 U/L 22-95 Alt (SGPT) 13 U/L 10-40 Ast (Sgot) 15 U/L 5-34 BUN 11 mg/dL 6-26 Calcium 9.2 mg/dL 8.6-10.2 Chloride 99 mEq/L 94-112 Creatinine 0.9 mg/dL 0.6-1.4 Carbon Dioxide 25 mEq/L 21-32 Glucose 81 mg/dL 70-105 Sodium 141 mEq/L 134-149 Total Bilirubin 0.2 mg/dL 0.2-1.3 Total Protein 6.8 g/dL 6.3-8.1 Potassium 4.4 mEq/L 3.6-5.5 Globulin 2.3 g/dL 2.0-4.8 A/G Ratio 1.9 Calc 0.6-2.2 BUN/Creat Ratio 11.9 Calc 8.0-36.0 1 consistent w/ previous results 2 Because ethnic data is not always readily available, this report includes an eGFR for both -Americans and non- Americans. The National Kidney Disease Education Program (NKDEP) does not endorse the use of the MDRD equation for patients that are not between the ages of 18 and 70, are , have extremes of body size, muscle mass, or nutritional status, or are non- or non-. According to the National Kidney Foundation, irrespective of diagnosis, the stage of the disease is based on the level of kidney function: Stage Description GFR(mL/min/1.73 m(2)) 1 Kidney damage with normal or decreased GFR 90 2 Kidney damage with mild decrease in GFR 60-89 3 Moderate decrease in GFR 30-59 4 Severe decrease in GFR 15-29 5 Kidney failure <15 (or dialysis) 3 Acute inflammation: >10.00 4 Abnormality Name Result Abn Cutoff (%) (%) t(9;22) ABL1/BCR fusion Normal <0.6 5 Locus and probes [Strategy;#Nuclei;Class] 9q34(ABL1),22q11.2(BCR) [DFISH;500;ASR] Probe strategy includes: DFISH=dual color, double fusion. 6 nuc marija(ABL1,BCR)x2[500] Of 500 nuclei, 0% had fusion of BCR and ABL1. 7 The result is within normal limits for the BCR and ABL1 gene regions. 8 Analyte Specific Reagent (ASR). This test was developed using an analyte specific reagent. Its performance characteristics were determined by [facility] in a manner consistent with CLIA requirements. This test has not been cleared or approved by the U.S. Food and Drug Administration. This FISH test does not rule out other chromosome abnormalities. 9 RESULT: Fiona Cowan, Ph.D. Test Performed by: [place] [address] 10 Test Performed by: [place] [address] 11 <1:80 (Negative) REFERENCE VALUE <1:80 (Negative) Test Performed by: [place] [address] 12 see interpretation 13 Peripheral blood, JAK2 V617F mutation analysis: Negative for JAK2 V617F. Method summary - JAK2 V617F analysis: Quantitative, allele-specific polymerase chain reaction (PCR) assay was performed using extracted genomic DNA to evaluate for the point mutation causing JAK2 V617F. The analytic sensitivity of this assay has been determined at 0.06% (see [facility] Interpretive Handbook for method details). Peripheral blood, CALR mutation analysis, exon 9. Negative. No deletion or insertion was detected in CALR, exon 9. Method Summary - CALR: Exon 9 of CALR was amplified from genomic DNA by polymerase chain reaction (PCR). The size of the PCR product was analyzed by capillary electrophoresis on the KOURTNEY 3130xl Genetic Analyzer. The analytic sensitivity of this assay is approximately 6% for the majority of CALR mutations and is approximately 20% for the rare type 1-bp deletion (See [facility] Interpretive Handbook for details). Peripheral blood, MPL exon 10 mutation analysis: Negative. No mutation was detected in MPL, exon 10. Method summary - MPL exon 10 mutation analysis: Genomic DNA was extracted and Yesi sequencing used to evaluate for mutations in MPL, exon 10 (see [facility] Interpretive Handbook for method details). The sensitivity of this assay is approximately 20%, such that samples containing lower percentages of mutated DNA will appear negative. Comment: Negative results for [id number], CALR exon 9, and MPL exon 10 mutations do not exclude the diagnosis of a myeloproliferative neoplasm. Correlation with clinical and morphologic finding is recommended for a definitive diagnosis. Samples containing mutations in these genes at levels below the analytical sensitivity of each assay may not be detected by these methods. If there are persistent unexplained erythrocytosis, JAK2 Exon 12 analysis could be considered (JAKXB or JAKXM) to rule out polycythemia vera (PV). Signing Pathologist: Dio House M.D. ADDITIONAL INFORMATION This test was developed and its performance characteristics determined by [facility] in a manner consistent with CLIA requirements. This test has not been cleared or approved by the U.S. Food and Drug Administration. Test Performed by: [address] [address] 14 RESULTS VERIFIED BY REPEAT ANALYSIS 15 RESULTS VERIFIED BY REPEAT ANALYSIS 16 2 sst 17 Negative: < 0.8 Indeterminate: 0.8 - 0.9 Positive: > 0.9 The CDC recommends that a positive HCV antibody result be followed up with a HCV Nucleic Acid Amplification test (158501). 18 Negative <0.91 Equivocal 0.91 - 1.09 Positive >1.09 Note: Negative indicates no antibodies detected to HSV-2. Equivocal may suggest early infection. If clinically appropriate, retest at later date. Positive indicates antibodies detected to HSV-2. 19 Test Not Performed. The APTIMA(R) Swab Transport received was submitted with a cleaning swab (white shaft). The correct swab is the blue or pink shaft collection swab. See collection instructions provided with the transport device. TEST: [id number] Chlamydia/GC Amplification 20 Test Not Performed. The APTIMA(R) Swab Transport received was submitted with a cleaning swab (white shaft). The correct swab is the blue or pink shaft collection swab. See collection instructions provided with the transport device. 21 Test not performed 22 Negative: < 0.8 Indeterminate: 0.8 - 0.9 Positive: > 0.9 The CDC recommends that a positive HCV antibody result be followed up with a HCV Nucleic Acid Amplification test (256843). 23 1 sst 24 Negative <0.91 Equivocal 0.91 - 1.09 Positive >1.09 Note: Negative indicates no antibodies detected to HSV-2. Equivocal may suggest early infection. If clinically appropriate, retest at later date. Positive indicates antibodies detected to HSV-2. 25 Negative <0.91 Equivocal 0.91 - 1.09 Positive >1.09 26 2 SST 27 Adult male reference interval is based on a population of lean males up to 40 years old. 28 Acceptable specimens for this test are male urethral swab, endocervical swab and liquid based pap specimens, vaginal swabs in APTIMA transports and first void urine. See online Directory of Services for test number for rectal and pharyngeal specimens. 29 4 sst; 1 urine aptima 30 Index Value: Specimen reactivity relative to the negative cutoff. 31 Negative <0.91 Equivocal 0.91 - 1.09 Positive >1.09 32 RN-[facility] [address] [facility] [phone] RN-[facility] [phone] 34 Acceptable specimens for this test are male urethral swab, endocervical swab and liquid based pap specimens, vaginal swabs in APTIMA transports and first void urine. See online Directory of Services for test number for rectal and pharyngeal specimens. RN-[facility] [address] [facility] [phone] 35 Positive: 5 of the following Borrelia-specific bands: 18,23,28,30,39,41,45,58, 66, and 93. Negative: No bands or banding patterns which do not meet positive criteria. 36 Note: An equivocal or positive EIA result followed by a negative Western Blot result is considered NEGATIVE. An equivocal or positive EIA result followed by a positive Western Blot is considered POSITIVE by the CDC. Positive: 2 of the following bands: 23,39 or 41 Negative: No bands or banding patterns which do not meet positive criteria. Criteria for positivity are those recommended by CDC/ASTPHLD. p23=Osp C, o12=skvubgres Note: Sera from individuals with the following may cross react in the Lyme Western Blot assays: other spirochetal diseases (periodontal disease, leptospirosis, relapsing fever, yaws, and pinta); connective autoimmune (Rheumatoid Arthritis and Systemic Lupus Erythematosus and also individuals with Antinuclear Antibody); other infections ([place] Spotted Fever; Gabby-Pozo Virus, and Cytomegalovirus). 37 Negative <0.91 Equivocal 0.91 - 1.09 Positive >1.09 Note: The CDC currently advises that Western blot testing be performed following all equivocal or positive EIA results. Final diagnosis should include appropriate clinical findings and a positive EIA which is also positive by Western blot. 38 Negative <0.91 Equivocal 0.91 - 1.09 Positive >1.09 Note: IgM levels may peak at 3-6 weeks post infection, then gradually decline. FDA currently advises that Western Blot testing be performed following all equivocal or positive EIA results. Final diagnosis should include appropriate clinical findings and a positive EIA which is also positive by Western Blot. 39 result cristy'd 40 RUN DATE: 12/14/12 [facility] LAB LIVE PAGE 1 RUN TIME: [address] [place] [address] Specimen Inquiry Name: LEILANI SCHUSTER : [address]: Kai Driscoll MD Acct: [id number] Unit: [id number] AGE: 52 Location: [facility] Re12/12/12 SEX: M Status: REG REF SPEC: [id number] CLAU: 12/12/12- SUBM DR: Kai Driscoll MD REQ: [id number] RECD: 12/13/12 STATUS: KAYLA GARCIA DR: Marco Antonio Greenwood MD _ ORDERED: LEVEL IV/3 FINAL DIAGNOSIS 1. Colon, 20 cm. biopsy: Hyperplastic polyp. 2. Colon, 15 cm., biopsy: Hyperplastic polyp. 3. Colon, rectum, biopsy: Hyperplastic polyp. CLINICAL HISTORY Screening colonoscopy POST-OPERATIVE DIAGNOSIS Colonoscopy into cecum, prep good - 3 small polyps removed GROSS DESCRIPTION 1. The specimen is received in formalin labelled Leilani Landen, Biopsy Colon Polyp at 20 cm., and consists of two gonzales, soft tissue fragments measuring 0.7 x 0.3 x 0.2 cm. Submitted entirely, one cassette. 2. The specimen is received in formalin labelled Leilani Landen, Biopsy Colon Polyp at 15 cm., and consists of a gonzales, soft tissue fragment measuring 0.7 x 0.6 x 0.3 cm. Submitted entirely, one cassette. 3. The specimen is received in formalin labelled Leilani Landen, Biopsy Rectal Polyp, and consists of multiple gonzales, soft tissue fragments measuring 0.6 x 0.3 x 0.2 cm. Submitted entirely, one cassette. CONTINUED ON NEXT PAGE * ML=Testing performed at Main Lab DEPARTMENT OF PATHOLOGY, [facility] [employer] [place], [place] [address] Freedom Chavira M.D. Director [facility] Permit #[id number] RUN DATE: 12/14/12 [facility] LAB LIVE PAGE 2 RUN TIME: [address] [facility] [employer] [place], [place] [address] Specimen Inquiry Patient: LEILANI SCHUSTER [id number] (Continued) GROSS DESCRIPTION (Continued) Signed (signature on file) Freedom Chavira MD 1431 END OF REPORT * ML=Testing performed at Main Lab DEPARTMENT OF PATHOLOGY, [address] [place] [address] Freedom Chavira M.D. Director [facility] Permit #[id number] Procedures Date Code Description Status 12/12/2012 [id number] Colonoscopy Completed Encounters Type Date Location Provider Dx Diagnosis Office Visit 07/14/2018 Main Office Evon BarretoSavana H61.22 Impacted cerumen, left 6:15p CHAD Dunaway ear Office Visit 10/14/2017 Main Office Marco Antonio Greenwood, E78.2 Mixed hyperlipidemia 1:00p M.D. K63.5 Polyp of colon Z12.5 Encounter for screening for malignant neoplasm of prostate F32.9 Major depressive disorder, single episode, unspecified Z12.2 Encntr screen for malignant neoplasm of respiratory organs Z23 Encounter for immunization Office Visit 07/01/2017 6:00p Main Office Marco Antonio Greenwood, F52.21 Male erectile M.D. disorder E78.2 Mixed hyperlipidemia H69.82 Other specified disorders of Eustachian tube, left ear Z12.5 Encounter for screening for malignant neoplasm of prostate Office Visit 03/30/2017 1:15p Main Office Marnie Mc, Z11.3 Encntr screen for Afnp-C infections w sexl mode of transmiss Z23 Encounter for immunization Office Visit 11/17/2016 10:45a Main Office Marnie Mc, Z11.3 Encntr screen for Afnp-C infections w sexl mode of transmiss R39.198 Other difficulties with micturition Office Visit 09/01/2016 1:00p Main Office Laura Vaughn, F17.290 Nicotine dependence, Afnp-C other tobacco product, uncomplicated Z11.3 Encntr screen for infections w sexl mode of transmiss Z71.6 Tobacco abuse counseling Office Visit 08/18/2016 2:45p Main Office Laura Vaughn Z11.3 Encntr screen for Afnp-C infections w sexl mode of transmiss Office Visit 08/06/2016 11:15a Main Office Laura Vaughn Z11.3 Encntr screen for Afnp-C infections w sexl mode of transmiss Office Visit 05/26/2016 1:15p Main Office Laura Vaughn, F33.1 Major depressive Afnp-C disorder, recurrent, moderate Z11.3 Encntr screen for infections w sexl mode of transmiss Office Visit 04/28/2016 1:00p Main Office Laura Vaughn, F33.1 Major depressive Afnp-C disorder, recurrent, moderate Office Visit 10/01/2015 4:30p Main Office Laura Vaughn, M25.511 Pain in right Afnp-C shoulder F32.4 Major depressv disorder, single episode, in partial remis F41.1 Generalized anxiety disorder Office Visit 09/19/2015 1:20p Main Office Marco Antonio Greenwood, Z00.00 Encntr for general M.D. 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 V41.7 Sexual Function Problem Office Visit 09/18/2014 2:00p Main Office Laura Vaughn, 719.41 Pain Joint Afnp-C Shoulder Region 272.4 Hyperlipidemia Other Unspec 311 Depressive Disorder Not Elsewhere Spec 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 V04.81 Need For Prophylactic Vaccination & Inoculation/Influenza Office Visit 07/17/2014 5:45p Main Office Laura Vaughn, 719.41 Pain Joint Afnp-C Shoulder Region Office Visit 06/14/2014 10:00a Main Office Laura Vaughn, 338.19 Other Acute Pain Afnp-C 272.4 Hyperlipidemia Other Unspec V41.7 Sexual Function Problem Office Visit 05/10/2014 1:50p Main Office Marco Antonio Greenwood, 311 Depressive Disorder M.D. Not Elsewhere Spec V41.7 Sexual Function Problem V76.44 Screening For Malig Russ Prostate V77.91 Screening For Lipoid Disorders Office Visit 04/24/2014 3:00p Main Office Laura Vaughn, 311 Depressive Disorder Afnp-C Not Elsewhere Spec 300.00 Anxiety State Unspec 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 V41.7 Sexual Function Problem Office Visit 01/16/2014 2:00p Main Office Laura Vaughn, 311 Depressive Disorder Afnp-C Not Elsewhere Spec 300.00 Anxiety State Unspec 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 V41.7 Sexual Function Problem 307.42 Sleep Disorder Persistent Initiating Or Maintaining Sleep Office Visit 10/10/2013 2:00p Main Office Laura Vaughn, 311 Depressive Disorder Afnp-C Not Elsewhere Spec 300.00 Anxiety State Unspec 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 V74.5 Screening Examination Venereal Disease Office Visit 09/26/2013 2:30p Main Office Laura Vaughn, 311 Depressive Disorder Afnp-C Not Elsewhere Spec 300.00 Anxiety State Unspec 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 307.42 Sleep Disorder Persistent Initiating Or Maintaining Sleep Office Visit 09/12/2013 1:15p Main Office Laura Vaughn, 296.30 Depressive Afnp-C Disorder Major Recurrent Unspec 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 Office Visit 08/29/2013 1:00p Main Office Laura Vaughn, 311 Depressive Disorder Afnp-C Not Elsewhere Spec 300.00 Anxiety State Unspec 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 Office Visit 08/15/2013 3:15p Main Office Laura Vaughn, 296.30 Depressive Afnp-C Disorder Major Recurrent Unspec 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 300.00 Anxiety State Unspec Office Visit 08/08/2013 6:15p Main Office Laura Vaughn, 296.30 Depressive Afnp-C Disorder Major Recurrent Unspec Office Visit 04/04/2013 12:00p Main Office Laura Vaughn, 305.03 Alcohol Abuse In Afnp-C Remission 300.00 Anxiety State Unspec 311 Depressive Disorder Not Elsewhere Spec Office Visit 09/22/2012 3:40p Main Office Marco Antonio Greenwood, V70.0 Examination General M.D. Medical Routine AT Health Care Facility V77.91 Screening For Lipoid Disorders V76.51 Screening For Malignant Neoplasms Colon V76.44 Screening For Malig Russ Prostate 311 Depressive Disorder Not Elsewhere Spec 300.00 Anxiety State Unspec V18.3 History Family Blood Disorders Spec Other V76.41 Screening Malignant Neoplasm Rectum Office Visit 08/30/2012 12:00p Main Office Chrystal Lemons Depressive Disorder Afnp-C Not Elsewhere Spec 300.00 Anxiety State Unspec 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 v04.81 Need For Prophylactic Vaccination & Inoculation/Influenza Office Visit 05/24/2012 3:30p Main Office Chrystal Lemons Depressive Disorder Afnp-C Not Elsewhere Spec 300.00 Anxiety State Unspec 305.00 Alcohol Abuse Unspec Office Visit 02/10/2012 11:30a Main Office Chrystal Lemons Depressive Disorder Afnp-C Not Elsewhere Spec 300.00 Anxiety State Unspec 305.00 Alcohol Abuse Unspec Office Visit 01/06/2012 11:30a Main Office Chrystal Lemons Depressive Disorder Afnp-C Not Elsewhere Spec 300.00 Anxiety State Unspec 305.00 Alcohol Abuse Unspec Office Visit 12/17/2011 11:00a [facility] Office Chrystal Lemons Depressive Afnp-C Disorder Not Elsewhere Spec 300.00 Anxiety State Unspec Office Visit 12/02/2011 11:30a Main Office Laura Roderick, 311 Depressive Disorder Afnp-C Not Elsewhere Spec 300.00 Anxiety State Unspec 305.00 Alcohol Abuse Unspec Office Visit 08/26/2011 11:30a Main Office Chrystal Lemons Depressive Disorder Afnp-C Not Elsewhere Spec 300.00 Anxiety State Unspec 305.00 Alcohol Abuse Unspec Office Visit 07/22/2011 11:30a Main Office Chrystal Lemons Depressive Disorder Afnp-C Not Elsewhere Spec 300.00 Anxiety State Unspec 305.00 Alcohol Abuse Unspec Office Visit 06/18/2011 11:30a Main Office Chrystal Lemons Depressive Disorder Afnp-C Not Elsewhere Spec 300.00 Anxiety State Unspec 305.00 Alcohol Abuse Unspec Office Visit 03/18/2011 11:30a Main Office Chrystal Lemons Depressive Disorder Afnp-C Not Elsewhere Spec 300.00 Anxiety State Unspec 305.00 Alcohol Abuse Unspec 786.2 Cough Office Visit 01/14/2011 11:30a Main Office Chrystal Lemons Depressive Disorder Afnp-C Not Elsewhere Spec 300.00 Anxiety State Unspec 305.00 Alcohol Abuse Unspec Office Visit 12/17/2010 11:30a Main Office Chrystal Lemons Depressive Disorder Afnp-C Not Elsewhere Spec 300.00 Anxiety State Unspec 305.00 Alcohol Abuse Unspec Office Visit 10/08/2010 3:30p Main Office Chrystal Lemons Depressive Disorder Afnp-C Not Elsewhere Spec 300.00 Anxiety State Unspec 305.00 Alcohol Abuse Unspec Office Visit 09/04/2010 1:00p Main Office Chrystal Lemons Depressive Disorder Afnp-C Not Elsewhere Spec 300.00 Anxiety State Unspec 305.00 Alcohol Abuse Unspec Office Visit 08/14/2010 1:00p Main Office Chrystal Lemons Depressive Disorder Afnp-C Not Elsewhere Spec 300.00 Anxiety State Unspec 305.00 Alcohol Abuse Unspec Plan of Treatment 12/06/2018 - Teetee Michel, FNPM25.511 Pain in right shoulderNew Medication: Cyclobenzaprine HCL 5 mg - one to two tablet every night at bedtime as needed for upper back, neck, shoulder painFollow up:Call [facility] if condition changes/ worsens in any wayM54.5 Low back painN50.811 Right testicular painComments: Advised proceed to Emergency Room promptlyDDX includes, but not limited to: repeat torsion, hernia, etc
== END 2018-12-06 16:01 | disposition home or self-care (01) ==
LOC: ED 15:05
DX: N45.1 Epididymitis (principal); N50.811 Right testicular pain; Z72.0 Tobacco use
CPT/HCPCS: 76870; 81003; 99282; A9270-GY

== ENCOUNTER → 2018-12-13 15:35 | Emergency (ER) | payer OTHER ==
[~2018-12-13 15:35] MED LIST: Gentamicin ADULT (*) 160 MG in NS 0.9% 100 ML* 100 ML IVPB ONE; Gentamicin ADULT (*) 40 MG/ML VIAL (2 ML VIAL = 80 MG) IVPB ONE; cefTRIAXone(*) 2 GM in NS 0.9% 100 ML* 100 ML IVPB ONE
--- NOTE | 2018-12-13 16:06 | ED ---
GI/ HPI - HPI Summary HPI Summary: This pt is a 58 y/o male presenting to [facility] for right testicular pain for the past week. Pt reports he was in the ED on 12/06/18 for this pain and was diagnosed with epididymitis. He was discharged home with Ciprofloxacin and started to take them that day. Pt notes he finished the Ciprofloxin this morning. Pt states his pain was becoming better until yesterday when it started worsening. Denies fever, penile discharge, increased swelling, hematuria, nausea , vomiting. He currently rates his pain 5.5 out of 10 in severity[address] Pt called Dr. Reagan, urologist, who told him to come to the ED for IV antibiotics. PMHx: testicular torsion on the left s/p left orchiectomy. - History of Current Complaint Chief Complaint: EDUrogenitalProblems Time Seen by Provider: 12/13/18 15:56 Stated Complaint: GENERAL Hx Obtained From: Patient Onset/Duration: Started Days Ago, Still Present Timing: Lasting Days Current Severity: Moderate Pain Intensity: 6 Additional Locations for Males: Testicles - right Associated Signs and Symptoms: Negative: Nausea, Vomiting, Fever, Hematuria, Chills Additional Signs & Symptoms: Negative: Penile Swelling - increase in swelling, Penile Discharge Aggravating Factor(s): Nothing Alleviating Factor(s): Nothing - Allergy/Home Medications Allergies/Adverse Reactions: Allergies Allergy/AdvReac Type Severity Reaction Status Date / Time No Known Allergies Allergy Verified 12/13/18 15:47 PMH/Surg Hx/FS Hx/Imm Hx Endocrine/Hematology History: Denies: Hx Diabetes, Hx Thyroid Disease Cardiovascular History: Denies: Hx Hypertension, Hx Pacemaker/ICD Respiratory History: Reports: Hx Sleep Apnea - evaluation for 12/2013 Denies: Hx Asthma, Hx Chronic Obstructive Pulmonary Disease (COPD) GI History: Denies: Hx Ulcer History: Reports: Other Problems/Disorders - testicular torsion, left Sensory History: Reports: Hx Contacts or Glasses Denies: Hx Hearing Aid Opthamlomology History: Reports: Hx Contacts or Glasses Psychiatric History: Reports: Hx Anxiety, Hx Depression, Hx Inpatient Treatment , Other Psychiatric Issues/Disorders - hx of ETOH Denies: Hx Panic Disorder - Surgical History Surgery Procedure, Year, and Place: nasal surgery as a child, tendon repair ( right) hand, testicular torsion-testicle removed Infectious Disease History: No Infectious Disease History: Denies: Hx Hepatitis, Hx Human Immunodeficiency Virus (HIV), History Other Infectious Disease, Traveled Outside the [place] in Last 30 Days - Family History Known Family History: Negative: Respiratory Disease, Seizure Disorder - Social History Alcohol Use: None Substance Use Type: Reports: None Substance Use Comment - Amount & Last Used: Previous ETOH, sober past 3 yrs, goes to AA Smoking Status (MU): Never Smoked Tobacco Type: Cigarettes Amount Used/How Often: 1 ppd Length of Time of Smoking/Using Tobacco: 30 yrs Have You Smoked in the Last Year: Yes Review of Systems Negative: Fever, Chills Negative: Vomiting, Nausea Negative: discharge, hematuria, other - NEG: increased swelling All Other Systems Reviewed And Are Negative: Yes Physical Exam - Summary Physical Exam Summary: Appearance: Well appearing, no pain distress Skin: warm, dry, reflects adequate perfusion Head/face: normal Eyes: EOMI, YNES ENT: normal Neck: supple, nontender Respiratory: CTA, breath sounds present Cardiovascular: RRR, pulses symmetrical Abdomen: nontender, soft : Tenderness over the right testicle. Musculoskeletal: normal, strength/ROM intact Neuro: normal, sensory motor intact, A&Ox3 Triage Information Reviewed: Yes Vital Signs On Initial Exam: Initial Vitals Temp Pulse Resp BP Pulse Ox 98 F 91 16 115/76 97 12/13/18 15:43 12/13/18 15:43 12/13/18 15:43 12/13/18 15:43 12/13/18 15:43 Vital Signs Reviewed: Yes Diagnostics - Vital Signs Vital Signs Temp Pulse Resp BP Pulse Ox 12/13/18 15:43 98 F 91 16 115/76 97 - Laboratory Lab Statement: Any lab studies that have been ordered have been reviewed, and results considered in the medical decision making process. - Ultrasound No standard instances Ultrasound Interpretation Completed By: Radiologist Summary of Ultrasound Findings: Testicular Ultrasound IMPRESSION: 1. No sonographic features of torsion. Please note that partial or intermittent torsion may be sonographically normal. 2. Status post left orchiectomy. 3. The right epididymis is heterogeneous and enlarged suggestive of epididymitis in the correct clinical setting. This is similar to the previous examination of December 06, 2018. Dr. Olivarez has reviewed this report. Re-Evaluation - Re-Evaluation First Eval Re-Evaluation Time: 18:00 Comment: Reviewed US results with the pt. Discussed Dr. Reagan's recommendation and plan to discharge home. GIGU Course/Dx - Course Assessment/Plan: Pt is a 58 y/o male who presents with right testicular pain for the past week. Pt was diagnosed with epididymitis on 12/06 and placed on Ciprofloxacin (last does this am). Pt states his pain was becoming better until yesterday when pain started worsening. In the ED course the pt was given Gentamicin, Rocephin. Discussed pt care with Dr. Reagan, urologist, who reports to do US and if negative, discharge pt home on different antibiotics. Testicular US shows 1. No sonographic features of torsion. Please note that partial or intermittent torsion may be sonographically normal. 2. Status post left orchiectomy. 3. The right epididymis is heterogeneous and enlarged suggestive of epididymitis in the correct clinical setting. This is similar to the previous examination of December 06, 2018. Pt will be discharged home with follow up from Dr. Reagan, urologist. He was given prescriptions for Ceftin and Doxycycline. He is instructed to return to the ED for any worsening or new symptoms. Pt understands and agrees. - Diagnoses Differential Diagnoses - Male: Epididymitis Provider Diagnoses: Epididymitis - Physician Notifications Discussed Care Of Patient With: Danis Reagan Time Discussed With Above Provider: 16:07 Instructed by Provider To: Other - Discussed pt care with Dr. Reagan, urologist, who reports to do US and if negative, discharge pt home on different antibiotics. Discharge - Sign-Out/Discharge Documenting (check all that apply): Patient Departure - Discharge home - Discharge Plan Condition: Stable Disposition: HOME Prescriptions: ceFUROXime TAB(*) [Ceftin TAB 250 MG(*)] 500 mg PO BID #20 tab DOXYcycline CAP(*) [DOXYcycline 100MG CAP(*)] 100 mg PO BID #20 cap Patient Education Materials: Epididymitis (ED) Referrals: Marco Antonio Greenwood MD [Primary Care Provider] - Danis Reagan MD [Medical Doctor] - Additional Instructions: Please call Dr. Reagan's office, urologist, and make an appointment to follow up. RETURN TO THE ED FOR ANY WORSENING OR NEW SYMPTOMS. - Billing Disposition and Condition Condition: STABLE Disposition: Home - Attestation Statements Document Initiated by Scribe: Yes Documenting Scribe: Viviana Rizo Provider For Whom Scribe is Documenting (Include Credential): Evan Olivarez MD Scribe Attestation: I, Viviana Rizo, scribed for Evan Olivarez MD on 12/13/18 at 1840. Scribe Documentation Reviewed: Yes Provider Attestation: The documentation as recorded by the Viviana le accurately reflects the service I personally performed and the decisions made by me, Evan Olivarez MD Status of Scribe Document: Viewed
--- OUTSIDE RECORDS SUMMARY | 2018-12-13 16:07 | XMS REPORT | Continuity of Care Document ---
:1960 External Reference #:[id number] Author Name CESAR Lamb Address [address] [facility] [place] [address] Care Team Providers Name Role Phone Marco Antonio [place] MD Care Team Information Property Administrator Unavailable Marco Antonio [place] MD Primary Care Physician Unavailable Payers Type Date Identification Numbers Payment Provider Subscriber Effective: 2010 Policy Number: [id number] [facility] Leilani Schuster PayID: [id number] [address] [address] [place] [address] Advance Directives Description No Information Available Problems [...] Form Strength Qnty SIG Indications Ordering Provider Cefuroxime 12/13 Active Tablets 500mg 20tabs take one N50.811 Teetee Axetil /2018 by mouth Marilu, twice PRINTING TABLE HAND daily Doxycycline 12/13 Active Capsules 100mg 20caps 1 by N50.811 Teetee Monohydrate mouth Marilu, twice a PRINTING TABLE HAND day x 10 days Cyclobenzaprine 12/06 Active Tablets 5mg 60tabs one to M25.511 Teetee HCL two Marilu, tablet PRINTING TABLE HAND every night at bedtime as needed for upper back, neck, shoulder pain Mirtazapine 00 Active Tablets 30mg take Unknown /0000 1.5-1 tablet by mouth at bedtime Diazepam 00 Active Tablets 2mg 1 po once Unknown /0000 a day as needed for anxiety Viagra 07/01 Hx Tablets 100mg 9tabs take 11/16 F52.21 Marco Antonio A to [facility], - tablet by M.Jamil 10/14 mouth minutes prior to sexual activity as directed Nicorette 09/01 Hx Gum 4mg 100units chew one F17.290 piece at [facility], - least 6 Afnp-C 11/17 x/day Temazepam 07/17 Hx Capsules 15mg 30caps 1 by F41.9 Teetee mouth at [facility], - bedtime PRINTING TABLE HAND 08/06 as needed Aripiprazole 05/26 Hx Tablets 15mg 30tabs 1 tab qd F33.1 [facility], - Afnp-C 07/17 Abilify 04/28 Hx Tablets 10mg 30tabs 1 po qd F33.40 Roderick, - Afnp-C 05/26 Clonazepam 02/10 Hx Tablets 1mg 60tabs 11/16 - 1 Marco Antonio A two times Dar[place], - a day as M.DSavana 12/06 Temazepam 09/19 Hx Capsules 15mg 30caps 1 by F41.9 Marco Antonio A mouth at [facility], - bedtime M.D. 04/28 Physical Therapy 08/08 Hx treatment 719.41 Laura and Roderick, - evaluatio Afnp-C 09/19 n right shoulder pain Naproxen 08/08 Hx Tablets 500mg 60tabs 1 by 719.41 mouth Roderick, - twice a Afnp-C 09/19 day w food Naproxen 07/17 Hx Tablets 500mg 60tabs 1 po bid 719.41 w/ Roderick, - Afnp-C 03/19 Physical Therapy 07/17 Hx treatment 719.41 and Roderick, - evaluatio Afnp-C 03/19 n of shoulder pain Atorvastatin 06/14 Hx Tablets 10mg [...] 30caps 1 po qd Part Roderick, - Afnp-C 01/16 Duloxetine HCL 01/[address] [...] 60mg 1 po qd Part Roderick, - Afdwain-C 01/16 Cymbalta 08/[address] 30mg 7caps 1 po qd; Part samples Roderick, - Afdwain-C 08/15 Citalopram 02/24 Hx Tablets 20mg 30tabs 1 po qd Laura Hydrobromide along w/ oRderick, - the 40mg np-C 08/15 tab Citalopram 02/09 Hx Tablets 40mg 30tabs 1 tab po 311 Laura Hydrobromide qd along Roderick, - w/ 20mg np-C 08/08 tab Citalopram 12/17 Hx Tablets 60mg 30tabs 1 po qd 311 Laura Hydrobromide Roderick, - dwain-C 02/09 Klonopin 07/22 Hx Tablets 1mg 20tabs 11/16 - 1 F32.9 by mouth Roderick, - twice a np-C 09/19 day needed Trazodone HCL 06/18 Hx Tablets 50mg 30tabs take one 311 tablet by Roderick, - mouth at [facility] 07/22 bedtime for sleep Celexa 12/17 Hx Tablets 40mg 45tabs 1 and 11/16 311 po qd Roderick, - dwain-C 12/17 Celexa 09/04 Hx Tablets 20mg 30tabs 1 q am 311 Roderick, - np-C 12/17 Ambien 08/22 Hx Tablets 10mg 30tabs 1 po q hs prn Roderick, - np-C 03/18 Wellbutrin SR 08/14 Hx Tablets 150mg 60tabs 1 tab qd 311 ER 12HR x 3 days Roderick, - , then 1 np-C 09/04 tab bid at least 8 hrs apart. Xanax 08/14 Hx Tablets 0.25mg 20tabs 1 po qd 311 prn Roderick, - Jacinda-C 07/22 Rexulti 00/00 Hx Tablets 1mg Unknown /0000 - 08/06 Lexapro /00 Hx Tablets 20mg 1 by Unknown /0000 mouth - every day 11/17 Pristiq / Hx Tablets 100mg take 1 Unknown /0000 ER 24HR tablet by - mouth at 03/29 bed Nicotine Step 1 Hx Patches 21mg/24HR F17.290 Unknown /0000 24HR [...] /0000 tablet - along 07/14 with 2mg /2018 for 7mg total Methylphenidate Hx Tablets 5mg 1 by Unknown HCL /0000 mouth - every day 10/14 Venlafaxine HCL Hx Caps ER 37.5mg 1 by Unknown ER /0000 24HR mouth - every day 12/06 Immunizations CPT Code Status Date Vaccine Lot # [id number] Given 10/14/2017 Influenza vac quadrivalent preservative free 3yrs [id number] [place] [id number] Given 03/30/2017 Tdap Tetanus, W Pertussis [id number] Given 09/19/2015 Influenza Vac, Quadrivalent, Slit Virus, Im [id number] Given 09/18/2014 DO Not Use Split Influenza Virus Vaccine [id number] Given 08/30/2012 DO Not Use Split Influenza Virus Vaccine [id number] Vital Signs Date Vital Result Comment 12/13/2018 1:28pm BP Systolic 110 mmHg BP Diastolic 66 mmHg Heart Rate 116 /min Body Temperature 97.1 F Respiratory Rate 18 /min Height 67.5 inches 5'7.50" Weight 141.38 lb BMI (Body Mass Index) 21.8 kg/m2 12/06/2018 1:56pm BP Systolic 110 mmHg BP [...] Date Facility Test Result H/L Range Note Urinalysis Profile 12/06/2018 [facility] Urine Color Yellow Urine Appearance Cloudy Urine Specific [place] 1.024 N 1.010-1.030 Urine pH 6.0 N 5-9 Urine Urobilinogen Negative Negative Urine Ketones Negative Negative Urine Protein Negative Negative Urine Leukocytes Negative Negative Urine Blood Negative Negative Urine Nitrite Negative Negative Urine Bilirubin Negative Negative Urine Glucose Negative Negative CBC Electronic Fma 07/07/2018 [facility] (a) WBC 9.8 x10^3/UL 4.0- 10.0 RBC 4.46 x10^6/UL 3.93-6.00 HGB 12.9 g/dL 12.0-17.0 HCT 38 % 35-50 MCV 85.4 fL 80.0-95.0 MCH 28.9 pg 25.6-32.2 MCHC 33.9 g/dL 32.2-36.0 RDW-CV 12.5 % 11.6-14.4 PLT 339 x10^3/UL 163-400 MPV 8.7 fL Low 9.4-12.4 1 Laura# 5.11 x10^3/UL 1.56-6.13 Lymph# 2.95 x10^3/UL 1.18-3.74 Harding# 1.13 x10^3/UL High 0.24-0.82 Eos # 0.5 x10^3/UL 0.0-0.5 Baso # 0.04 x10^3/UL 0.01-0.08 Laura% 52.2 % 34.0-70.0 Lymph % 30.1 % 20.0-52.0 Harding% 11.5 % 5.0-12.0 Eos% 5.5 % 0.7-7.0 Baso% 0.4 % 0.1-1.2 CBC Auto Diff 03/28/2018 [facility] White Blood Count 9.1 10^3/uL N 3.5-10.8 [...] Cells % 0.1 Comp Metabolic Panel 11/29/2017 [facility] Sodium 136 mmol/L N 133-145 Potassium 3.9 [...] 103.3 >60 2 Laboratory test finding 11/29/2017 [facility] C Reactive Protein 1.04 mg/L N < 5.00 3 LDH 155 U/L N 140-271 CBC Auto Diff 11/29/2017 [facility] White Blood Count 15.8 10^3/uL High 3.5- [...] Cells % 0 Laboratory test finding 11/29/2017 [facility] Erythrocyte Sed Rate 13 mm/Hr N 0- 20 BCR/Abl Trans 9:22 Fish 11/29/2017 [facility] BCR/abl (Fish) Result Normal Summary BCR/abl (Fish) Result Table See Comment 4 BCR/abl (Fish) Specimen Blood BCR/abl (Fish) Referral Reason high WBC BCR/abl (Fish) Method See Comment 5 BCR/abl Results See Comment 6 BCR/abl (Fish) Interpretation See Comment 7 BCR/abl (Fish) Disclaimer See Comment 8 BCR/abl (Fish) Released By See Comment 9 Laboratory test finding 11/29/2017 [facility] Rheumatoid Factor <15 IU/mL <15 10 Nuclear AB (Hallie) By Ifa Igg <1:80 (Negative) 11 Myeloprolif Neoplasm With 11/29/2017 [facility] MPNR Result see interpretati <SEE 12 RFX NOTE> MPNR Final Diagnosis See Comment 13 Complete Blood Count 10/14/2017 [facility] (Fma) WBC 10.9 x10^3/UL High 3.6-9.6 14 RBC 4.52 x10^6/UL 3.90-5.70 HGB 13.8 g/dL 12.1-17.2 HCT 41 % 36-50 MCV 90.0 fL 82.2-97.4 MCH 30.5 pg 27.6-33.3 MCHC 33.9 g/dL 33.0-35.5 RDW 13.2 % 11.6-13.7 PLT 409 x10^3/UL High 150-400 15 MPV 7.0 fL Low 7.4-10.4 Gran # 7.7 x10^3/UL High 1.5-7.2 Lymph# 2.6 x10^3/UL 0.7-4.9 Harding# 0.6 x10^3/UL 0.1-0.9 Gran % 69.8 % 42.2-75.2 Lymph % 24.4 % 20.5-51.1 Harding% 5.8 % 1.7-9.3 Laboratory test finding 10/14/2017 [facility] Alex[facility] (a) PSA 0.7 ng/mL 0.0-4.0 Vitamin D25 55 30-100 TSH 0.51 mIU/L 0.50-6.00 Comprehensive Metabolic 10/14/2017 [facility] Alex[facility] (Fma) Sodium 142 mEq/L 134-149 Prof Potassium 4.3 [...] GFR >60 ml/min/1.73m^ >=60 Lipid Profile 10/14/2017 [facility] ([facility]ma) Cholesterol 226 mg/dL High 120-200 Triglycerides 160 mg/dL 30-200 HDL Cholesterol 51 mg/dL 30-70 LDL (Calculated) 143 CALC High 0-129 VLDL Cholesterol 32 mg/dL 0-50 HDL Risk Factor 4.4 CALC 0.0-4.4 Lipid Profile 04/08/2017 [facility]oe Alexandra (Fma) Cholesterol 171 mg/dL 120- 200 Triglycerides 150 mg/dL 30-200 HDL Cholesterol 57 mg/dL 30-70 LDL (Calculated) 84 CALC 0-129 VLDL Cholesterol 30 mg/dL 0-50 HDL Risk Factor 3.0 CALC 0.0-4.4 Hepatitis Panel, 03/30/2017 [facility] Hep A Ab, Negative Negative 16 Acute [address] [facility] [place] [address] (601)- - HBsAg Screen Negative Negative Hep B Core Ab, IgM Negative Negative Hep C Virus Ab 0.4 s/coratio 0.0-0.9 17 Laboratory test 03/30/2017 [facility] RPR Non Reactive Non Reactive finding [address] [place] [phone] (604)- - HIV 1/O/2 Ag/AB 03/30/2017 [facility] HIV Screen 4th Non Reactive Non Reactive Prelim W/Garland [address] [place] [address] [place] [address] wRfx (607)- - Chlamydia/GC 03/30/2017 [facility] Chlamydia Negative Negative Amplification [address] [place] [address] trachomatis, [place] [address] Christie (607)- - Neisseria gonorrhoeae, Christie Negative Negative Laboratory test 03/30/2017 [facility] HSV Type <0.91 index 0.00-0.90 [address] [place] [address] 2-Specific Ab, [place] [address] IgG (607)- - Hepatitis Panel, 11/17/2016 [facility] Hep A Ab, IgM Negative Negative Acute [address] [place] [phone] (607)- - HBsAg Screen Negative Negative Hep B Core Ab, IgM Negative Negative Hep C Virus Ab 0.5 s/coratio 0.0-0.9 19 Laboratory test 11/17/2016 [facility] RPR Non Reactive Non Reactive finding [address] [place] [address] (607)- - Ua - Micro (Fma) 11/17/2016 [...] test finding 11/17/2016 [facility] Request Problem TNP 20 [address] [place] [address] (607)- - Chlamydia/GC 11/17/2016 [facility] Chlamydia TNP 21 Amplification [address] [facility] trachomatis, [place] [address] (607)- - Neisseria gonorrhoeae, Christie TNP 22 HIV 1/O/2 11/17/2016 [facility] HIV Screen 4th Non Reactive Non Reactive Ag/AB Prelim [address] [facility] Generation wRfx W/[place] [address] Sup (607)- - Urine Culture 11/17/2016 [facility] Urine Culture, Final report Routine [address] [facility] [place] [address] (607)- - Result 1 No growth HIV 1/O/2 Ag/AB 09/01/2016 [facility] HIV Screen 4th Non Reactive Non 23 Prelim W/Garland [address] [facility] [place] [address] wRfx (607)- - Laboratory test 08/18/2016 [facility] HSV Type <0.91 index 0.00-0.90 [address] [place] [address] 2-Specific Ab, [place] [address] IgG (607)- - Chlamydia/GC 08/06/2016 [facility] Chlamydia Negative Negative Amplification [address] [facility] trachomatis, [place] [address] Christie (607)- - Neisseria gonorrhoeae, Christie Negative Negative Laboratory test 08/06/2016 [facility] RPR Non Reactive Non Reactive finding [address] [place] [address] (607)- - PDF [id number] SEE IMAGE HSV, IgM I/II 08/06/2016 [facility] HSV, IgM I/II 1.20 Ratio High 0.00-0.90 25 Combination [address] [facility] [place] [address] (607)- - Laboratory test 05/26/2016 [facility] RPR Non Non Reactive 26 finding [address] [facility] [place] [address] (607)- - Testosterone, 05/26/2016 [facility] Testosterone, 807 ng/dL [phone] Free And Total [address] [facility] [place] [address] (607)- - Comment: See Comment: 27 Free Testosterone(Direct) 11.6 pg/mL 7.2-24.0 HIV 1/O/2 Ag/AB 05/26/2016 [facility] HIV Screen 4th Non Reactive Non Reactive Prelim W/Garland [address] [facility] [place] [address] wRfx (607)- - Chlamydia/GC 05/26/2016 [facility] Chlamydia Negative Negative Amplification [address] [facility] trachomatis, [place] [address] Christie (607)- - Neisseria gonorrhoeae, Christie Negative Negative Please note: See Comment: 28 Lipid Profile 09/19/2015 [facility] Alex[facility] (Fma) Cholesterol [...] >60 ml/min/1.73m^ >=60 GFR >60 ml/min/1.73m^ >=60 Laboratory test 09/19/2015 [facility] Alexandra (Fma) PSA 0.6 ng/mL 0.0-4.0 finding Laboratory test 09/19/2015 [facility] Hepatitis C Nonreactive N Nonreactive finding Antibody Hepatic 09/18/2014 [facility] Alexandra (Fma) Total Protein 6.7 g/dL 6.4-8.3 Albumin 4.5 g/dL 3.8-5.5 Globulin 2.2 g/dL 2.0-4.8 A/G Ratio 2.0 CALC 0.6-2.3 Alk. Phosphatase 68 U/L 22-95 Alt (SGPT) 21 U/L 7-35 Ast (Sgot) 21 U/L 5-34 Total Bilirubin 0.3 mg/dL 0.2-1.3 Direct Bilirubn 0.2 mg/dL 0.0-0.6 Indirect Bilirubin 0.10 mg/dL 0.10-1.00 Laboratory test 07/17/2014 [facility] Alexandra (Fma) CK 137 U/L 38-174 finding Laboratory test 05/10/2014 [facility] Alexandra (Fma) PSA 0.6 ng/mL 0.0-4.0 finding Lipid Profile 05/10/2014 [facility] Alex[facility] (Fma) Cholesterol 218 mg/dL High 120-200 Triglycerides 144 mg/dL 30-200 HDL Cholesterol 41 mg/dL 30-70 LDL (Calculated) 148 CALC High 0-129 VLDL Cholesterol 29 mg/dL 0-50 HDL Risk Factor 5.3 CALC High 0.0-4.4 Comprehensive Metabolic 05/10/2014 [facility] Alex[facility] (Fma) Sodium 135 mEq/L 134-149 Prof Potassium 4.1 [...] [facility] Hep C NON-REACTIVE Non-Reactive 29 28 [facility] [place] [address] [phone] Hep C S/Co Ratio 0.1 0.0-0.7 Laboratory test 10/10/2013 [facility] RPR NON-REACTIVE Non-Reactive finding [address] [place] [address] [phone] Anti Viral AB 10/10/2013 [facility] HIV 1/O/2 <1.00 <1.00 30 Screen 28 [facility] [place] [place] [address] Value [phone] HIV 1/O/2 Abs, Qual Non Reactive Non Reactive Chlamydia/GC Aptima 10/10/2013 [facility] Chlamydia/GC, Christie SEE BELOW Urine [address] [place] [address] [phone] Source- Urine * Chlamydia Trachomatis,Christie Negative Negative 31 Neisseria Gonorrhoeae,Christie Negative Negative 32 Please Note: SEE BELOW 33 HSV Igm I/II 10/10/2013 [facility] HSV, IgM I/II 0.94 High 0.00-0.90 34 Combination [address] [facility] [place] [address] [phone] Lyme Western 08/08/2013 [facility] IgG P93 Ab. Absent Blot Ser [address] [place] [address] [phone] IgG P66 Ab. Absent IgG P58 Ab. [...] 1.06 index High 0.00-0.90 37 W/RFX West [address] [place] [address] [phone] Lyme Ab Interp.,Eia Equivocal Lyme Disease Ab, Quant, IgM <0.91 index 0.00-0.90 38 Comprehensive Metabolic 08/08/2013 [facility] Alexandra (Fma) Albumin 5.1 g/dL 3.8-5.5 Prof [...] Ratio 16.5 Calc 8.0-36.0 Laboratory test 08/08/2013 [facility] Alexandra (Fma) TSH 0.32 mIU/L Low 0.50- 6.00 39 finding Free T4 1.02 ng/dL 0.75-1.54 Surgical Pathology 12/12/2012 [facility] S RUN DATE: <SEE NOTE> CBC Electronic ([facility]) 09/26/2012 [facility] WBC 9.9 High 3.6-9.6 (607)- - RBC 4.74 3.90-5.70 Hemoglobin ([facility]ma/[facility]/CTX) 13.8 g/dL 12.1 - 17.2 Hematocrit (Fma/CMC/CTX) 42.7 % 36.1 - 50.3 Platelets 308 10^3/ul 150-400 Lymph% 30.6 20.5-51.1 Mixed% 5.1 Neutrophils % 64.3 Mean Corpuscular Vol 90 82.2-97.4 Mean Corpuscular Hemoglobin 29.1 27.6-33.3 Mean Corpuscular Hemo Concen 32.3 32.0-36.0 RDW 13.8 High 11.6-13.7 Mean Platelet Volume 6.6 6.5-11.0 Ua - Non Micro ([facility]) 09/26/2012 [facility] Appearance CLEAR (607)- - Color YELLOW Glucose, Urine (Fma/CMC/CTX) NEG Bilirubin NEG Ketones NEG SP Grav 1.020 Blood NEG PH 7.5 Protein NEG Urobil 0.2 Nitrite NEG Leukocytes ([facility]) NEG Laboratory test finding 09/26/2012 [facility] Alexandra ([facility]) PSA 0.50 ng/mL 0.00-4.00 TSH 0.56 mIU/L 0.50-6.00 Comprehensive Metabolic 09/26/2012 [facility]oe Alexandra ([facility]) Albumin 4.7 g/dL 3.8-5.5 Prof Alk. Phos. 68 U/L 22-95 Alt (SGPT) 21 U/L 10-40 Ast (Sgot) [...] Calc 0.6-2.2 BUN/Creat Ratio 10.9 Calc 8.0-36.0 Lipid Profile 09/26/2012 [facility] (a) Cholesterol 220 mg/dL High 120-200 HDL 43 mg/dL 30-70 Triglycerides 91 mg/dL 30-200 HDL Risk Factor 5.1 CALC High 0.0-4.4 LDL (Calculated) 159 CALC High 0-129 VLDL (Calculated) 18 mg/dL 0-50 Comprehensive Metabolic 09/04/2010 [facility] (a) Albumin 4.5 g/dL 3.8-5.5 Prof Alk. Phos. [...] reagent. Its performance characteristics were determined by [facility] in a manner consistent with CLIA requirements. This test has not been cleared or approved by the U.S. Food and Drug Administration. This FISH test does not rule out other chromosome abnormalities. 9 RESULT: Fiona Cowan, Ph.D. Test Performed by: [place] [address] 10 Test Performed by: [facility] [place] [address] 11 <1:80 (Negative) REFERENCE VALUE <1:80 (Negative) Test Performed by: [address] [address] 12 see interpretation 13 Peripheral blood, JAK2 V617F mutation analysis: Negative for JAK2 V617F. Method summary - JAK2 V617F analysis: Quantitative, allele-specific polymerase chain reaction (PCR) assay was performed using extracted genomic DNA to evaluate for the point mutation causing JAK2 V617F. The analytic sensitivity of this assay has been determined at 0.06% (see [facility] Interpretive Handbook for method details). Peripheral blood, [...] for the rare type 1-bp deletion (See [facility] Interpretive Handbook for details). Peripheral blood, MPL exon 10 mutation analysis: Negative. No mutation was detected in MPL, exon 10. Method summary - MPL exon 10 mutation analysis: Genomic DNA was extracted and [place] sequencing used to evaluate for mutations in MPL, exon 10 (see [facility] [email or web address] Interpretive Handbook for method details). The sensitivity of this assay is approximately 20%, such that samples containing lower percentages of mutated DNA will appear negative. Comment: Negative results for [id number], CALR exon 9, and MPL exon 10 [...] developed and its performance characteristics determined by [facility] in a manner consistent with CLIA requirements. This test has not been cleared or approved by the U.S. Food and Drug Administration. Test Performed by: [facility] [address] [facility], [place] [address] 14 RESULTS VERIFIED BY REPEAT ANALYSIS 15 RESULTS VERIFIED BY REPEAT ANALYSIS 16 2 sst 17 Negative: < 0.8 Indeterminate: 0.8 - 0.9 Positive: > 0.9 The CDC recommends that a positive HCV antibody result be followed up with a HCV Nucleic Acid Amplification test (296348). 18 Negative <0.91 Equivocal 0.91 - 1.09 Positive >1.09 Note: Negative indicates no antibodies detected to HSV-2. Equivocal may suggest early infection. If clinically appropriate, retest at later date. Positive indicates antibodies detected to HSV-2. 19 Negative: < 0.8 Indeterminate: 0.8 - 0.9 Positive: > 0.9 The CDC recommends that a positive HCV antibody result be followed up with a HCV Nucleic Acid Amplification test (969164). 20 Test Not Performed. The APTIMA(R) Swab Transport received was submitted with a cleaning swab (white shaft). The correct swab is the blue or pink shaft collection swab. See collection instructions provided with the transport device. TEST: 339507 Chlamydia/GC Amplification 21 Test Not Performed. The APTIMA(R) Swab Transport received was submitted with a cleaning swab (white shaft). The correct swab is the blue or pink shaft collection swab. See collection instructions provided with the transport device. 22 Test not performed 23 1 sst 24 Negative <0.91 Equivocal [...] reactivity relative to the negative cutoff. 31 RN-[facility] Price [address] [facility] [phone] 32 RN-[facility] Price [address] [facility] [phone] 33 Acceptable specimens for this test are male urethral swab, endocervical swab and liquid based pap specimens, vaginal swabs in APTIMA transports and first void urine. See online Directory of Services for test number for rectal and pharyngeal specimens. RN-[facility] Price [address] [facility] [phone] 34 Negative <0.91 Equivocal 0.91 - 1.09 Positive >1.09 35 Positive: 5 of the following Borrelia-specific [...] are those recommended by CDC/ASTPHLD. p23=Osp C, w33=kafzizona Note: Sera from individuals with the following may cross react in the Lyme Western Blot assays: other spirochetal diseases (periodontal disease, leptospirosis, relapsing fever, yaws, and pinta); connective autoimmune (Rheumatoid Arthritis and Systemic Lupus Erythematosus and also individuals with Antinuclear Antibody); other infections ([place] Spotted Fever; Gabby-Pozo Virus, and Cytomegalovirus). 37 [...] 39 result cristy'd 40 RUN DATE: 12/14/12 [facility] LAB LIVE PAGE 1 RUN TIME: [address] [place] [address] Specimen Inquiry Name: LEILANI SCHUSTER : [address]: Kai Driscoll MD Acct: [id number] Unit: [id number] AGE: 52 Location: ENDO Re12/12/12 SEX: M Status: REG REF SPEC: [id number] CLAU: 12/12/12- [facility] DR: Kai Driscoll MD REQ: [id number] RECD: 12/13/12 STATUS: KAYLA GARCIA DR: Marco [...] performed at Main Lab DEPARTMENT OF PATHOLOGY, [facility] [employer] [place] [id number] Freedom Chavira M.D. Director [facility] Permit #[id number] RUN DATE: 12/14/12 [facility] LAB LIVE PAGE 2 RUN TIME: [address] [facility] [employer] [place], [place] [address] Specimen Inquiry Patient: LANDENLEILANI [id number] (Continued) GROSS DESCRIPTION (Continued) Signed (signature on file) Freedom Chavira MD [facility] END OF REPORT * ML=Testing performed at Main Lab DEPARTMENT OF PATHOLOGY, [facility] [employer] [place], [place] [address] Freedom Chavira M.D. Director [facility] Permit #[id number] Procedures Date Code Description Status 12/12/2012 [id number] Colonoscopy Completed Encounters Type Date Location Provider Dx Diagnosis Office Visit 12/06/2018 Main Office Teetee Michel, M25.511 Pain in right 2:00p PRINTING TABLE HAND shoulder M54.5 Low back pain N50.811 Right testicular pain Office Visit 07/14/2018 6:15p Main Office Evon Aguirre H61.22 Impacted Gume howell NP left ear Office Visit 10/14/2017 1:00p Main Office Marco Antonio [place], E78.2 Mixed hyperlipidemia M.D. K63.5 Polyp of colon Z12.5 Encounter [...] Office Visit 03/30/2017 1:15p Main Office Marnie Mc Z11.3 Encntr screen for Afnp-C infections w sexl mode of transmiss Z23 Encounter for immunization Office Visit 11/17/2016 10:45a Main Office Marnie Mc Z11.3 Encntr screen for Afnp-C infections w sexl mode of transmiss R39.198 Other difficulties with micturition Office Visit 09/01/2016 1:00p Main Office Laura Vaughn F17.290 Nicotine dependence, Afnp-C other tobacco product, uncomplicated Z11.3 Encntr screen for infections w sexl mode of transmiss Z71.6 Tobacco abuse counseling Office Visit 08/18/2016 2:45p Main Office Maggie Lemons11.3 Encntr screen for Afnp-C infections w sexl mode of transmiss Office Visit 08/06/2016 11:15a Main Office Maggie Lemons11.3 Encntr screen for Afnp-C infections w sexl [...] Office Visit 04/24/2014 3:00p Main Office Laura Roderick, Chrystal Depressive Disorder Afnp-C Not Elsewhere Spec 300.00 Anxiety State Unspec 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 V41.7 Sexual Function Problem Office Visit 01/16/2014 2:00p Main Office Chrystal Lemons Depressive Disorder Afnp-C Not Elsewhere Spec 300.00 Anxiety State Unspec 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 V41.7 Sexual Function Problem 307.42 Sleep Disorder Persistent Initiating Or Maintaining Sleep Office Visit 10/10/2013 2:00p Main Office Chrystal Lemons Depressive Disorder Afnp-C Not Elsewhere Spec 300.00 Anxiety State Unspec 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 V74.5 Screening Examination Venereal Disease Office Visit 09/26/2013 2:30p Main Office LauraChrystal Cloud Depressive Disorder Afnp-C Not Elsewhere Spec 300.00 [...] Unspec Office Visit 12/02/2011 11:30a Main Office Chrystal Lemons Depressive Disorder [...] Unspec Office Visit 10/08/2010 3:30p Main Office Laura [place], 311 Depressive Disorder Afnp-C Not Elsewhere Spec 300.00 Anxiety State Unspec 305.00 Alcohol Abuse Unspec Office Visit 09/04/2010 1:00p Main Office Laura Vaughn, 311 Depressive Disorder Afnp-C Not Elsewhere Spec 300.00 Anxiety State Unspec 305.00 Alcohol Abuse Unspec Office Visit 08/14/2010 1:00p Main Office Laura Vaughn, 311 Depressive Disorder Afnp-C Not Elsewhere Spec 300.00 Anxiety State Unspec 305.00 Alcohol Abuse Unspec Plan of Treatment 12/13/2018 - Teetee Michel, [id number] Right testicular painNew Medication: Cefuroxime Axetil 500 mg - take one by mouth twice dailyDoxycycline Monohydrate 100 mg - 1 by mouth twice a day x 10 daysNew Labs:Urinalysis With Micro Manual, Ordered: 12/13/18Urine Culture & Sensitivity, Ordered: 12/13/18Comments:2 gram Rocephin IM in officePrompt referral to Dr Reagan, with whom the case was [id number] Fever, unspecified
[2018-12-13 17:55] VITALS: BP 122/70
== END | disposition home or self-care (01) ==
LOC: ED 15:35
DX: N45.1 Epididymitis (principal); F17.210 Nicotine dependence, cigarettes, uncomplicated; Z90.79 Acquired absence of other genital organ(s)
CPT/HCPCS: 76870; 96365; 99283; J0696; J1580